=== PATIENT | male | born 1995 | race Caucasian/White ===

== ENCOUNTER → 2016-04-06 | Outpatient (CLI) | payer BC ==
[~2016-04-06] MED LIST: CHOL2000 PO; CLOT10TR2 MT; FERR1TAB13 PO; FERR1TAB23 PO; FOLI1TAB7 PO; FRRS300 PO; MESA1.2T PO; ONDA4TAB10 SL; PRD10 PO; PRED-301 PO; PRED10TA PO; PRED20TA PO; RANI300T2 PO; RMCI IV
[2016-04-06 17:37] LABS: HEMATOCRIT 24.3 % (42-52); IG% 0.3 %; LYMPH % 4.8 %; MEAN CELL VOLUME 79.4 fL (80-100); MEAN CORPUSCULAR HEMOGLOBIN 25.2 pg (25-34); MEAN CORPUSCULAR HGB CONC 31.7 g/dl (32-36); MEAN PLATELET VOLUME 9.8 fL (7.4-10.4); MONO % 1.5 %; NEUT % 93.4 %; PLATELET COUNT 418 K/uL (130-400); RED BLOOD COUNT 3.06 M/uL (4.7-6.1); WHITE BLOOD COUNT 10.35 K/uL (4.8-10.8)
[2016-04-06 17:53] LABS: ANISOCYTOSIS PRESENT; COMPLETE YES; HYPOCHROMIA PRESENT; OVALOCYTES 1+
[2016-04-06 18:09] LABS: ALT/SGPT 28 U/L (12-78); AST/SGOT 9 U/L (15-37); BLOOD UREA NITROGEN 12 mg/dl (7-18); BUN/CREATININE RATIO 11.3 (10-20); CALCIUM 8.2 mg/dl (8.5-10.1); CARBON DIOXIDE 27 mmol/L (21-32); CHLORIDE 99 mmol/L (98-107); GLUCOSE 119 mg/dl (70-99); POTASSIUM 3.7 mmol/L (3.5-5.1); SODIUM 136 mmol/L (136-145)
[2016-04-06 18:11] LABS: ALB/GLOB RATIO 0.9 (0.9-2); ALKALINE PHOSPHATASE 43 U/L (45-117); C-REACTIVE PROTEIN 2.43 mg/dl (0-0.29)
[2016-04-09 20:28] LABS: HEPATITIS BE ANTIBODY TC 556 Nonreactive; QUANTIF TB AG-NIL <0.00 IU/ML; QUANTIFERON NIL 0.05 IU/ML
== END | disposition home or self-care (01) ==
LOC: C.LAB1850 16:56
PROVIDERS: ATTEND Registered Nurse
DX: K51.00 Ulcerative (chronic) pancolitis without complications (principal)

== ENCOUNTER 2016-04-07 09:50 | Inpatient (IN) | payer BC, OTHER ==
[2016-04-07] VITALS (15 sets, daily range): BP systolic 93–120; BP diastolic 52–72; PULSE 64–105; TEMP 36.6–36.9; O2SAT 98–100; Ht 182.9 cm; Wt 75.1 kg
[~2016-04-07] VITALS: Ht 182.9 cm; Wt 75.1 kg
[~2016-04-07 09:50] MED LIST changes: -CHOL2000 PO; -CLOT10TR2 MT; -FERR1TAB23 PO; -FOLI1TAB7 PO; -FRRS300 PO; -MESA1.2T PO; -ONDA4TAB10 SL; -PRD10 PO; -PRED-301 PO; -PRED10TA PO; -PRED20TA PO; -RANI300T2 PO; -RMCI IV
[2016-04-07] MEDS ORDERED: ACETAMINOPHEN 325 MG TAB PO PRN (13:30)
[2016-04-07] MEDS ORDERED: SODIUM CHLORIDE 0.9% 1000ML 1,000 ML IV SCH (13:30)
[2016-04-07] MEDS ORDERED: ONDANSETRON INJ 2 MG/ML 2 ML VIAL IV PRN (13:30)
[2016-04-07] MEDS ORDERED: PRED10TA PO (13:34)
[2016-04-07] MEDS ORDERED: MESA1.2T PO (13:34)
[2016-04-07] MEDS ORDERED: CLOT10TR2 MT (13:34)
--- NOTE | 2016-04-07 14:40 | Gastrointestinal Consultation ---
Gastrointestinal Consultation Date of Consultation: Apr 07, 2016 Attending Physician: Dr. Payne Consulting Physician: Denia Ortega Reason for Consultation: Ulcerative pancolitis History of Present Illness Patient is a 20 year old male with a history of Ulcerative Pancolitis who was evaluated yesterday in the outpatient setting by Asya WARD. Within the past 2 months, the patient underwent a colonoscopy that indicated inflammation throughout the colon. The patient had discussed with Asya initiation of biologic therapy for his IBD in February 2016. Despite urging, he was hesitant to begin as he felt like he was initially doing better with Prednisone & Lialda. Unfortunately, several weeks later while on winter , he deconditioned. He was restarted on Prednisone and Remicade was again recommended. [place] to his hometown during the holiday break and became ill. He was admitted to the hospital there for IV rehydration & IV steroids. He reports that he was discharged, but ended up back in the hospital after several days due to worsening abdominal pain, nausea, & vomiting. His local GI had restarted his Prednisone taper at a high dose of 60 mg daily. While hospitalized at the end of February, his hemoglobin did decline from around 12 to 8.6. He has been taking oral iron BID. He has also continued Lialda 4.8 h daily in divided dosages. He reports >6 episodes of bloody diarrhea daily. He reports abdominal discomfort ranging from a 5-8/10. He reports a poor appetite. He reports fatigue & dyspnea on exertion. It was discussed at his appointment on 04/06 that he would officially begin Remicade. Insurance paperwork has been started and the patient was educated & immunized for influenza & Pneumovax. A CBC, CMP, CRP, & quant gold were ordered. The patient's outpatient labs returned today and his hemoglobin was noted to be 7.7. His CRP was noted to be 2.43. He was instructed to present to the hospital as the hospitalists were kind enough to accept him as a direct admission due to his steroid refractory ulcerative pancolitis & profound anemia. Past Medical/Surgical History Ulcerative pancolitis, steroid-refractory Blood loss anemia Past Medical History: Ulcerative colitis Past Surgical History: Denies surgery with exception of colonoscopy Social History Smoking Status: Never Smoker Allergies Coded Allergies: NO KNOWN DRUG ALLERGIES (Verified Allergy, Unknown, ., 01/08/16) Current Medications Home Meds and Scripts Medications Dose Route/Sig Max Daily Dose Days Date Category Mycelex (Clotrimazole) 10 Mg Tro 10 Mg MT 5XD 04/07/16 Reported Lialda (Mesalamine) 1.2 Gm Tab 1 Tab PO BID 90 04/07/16 Reported Prednisone 10 Mg Tab 50 Mg PO QD 04/07/16 Reported Kp Ferrous Sulfate (Ferrous Sulfate) 325 Mg Tab 1 Tab PO HS 30 01/08/16 Reported Review of Systems Constitutional: + fatigue, + weakness, No chills, No fever Eyes: No problem reported ENT: No problem reported Respiratory: + dyspnea on exertion, No cough, No shortness of breath Cardiac: No chest pain Abdomen: + GI bleeding, + diarrhea, + pain, No constipation, No nausea, No vomiting Musculoskeletal: No joint pain Psych: No problem reported Endo: + fatigue Skin: + problem reported (pale) Physical Exam Date Time Temp Pulse Resp B/P Pulse Ox O2 Delivery O2 Flow Rate FiO2 04/07/16 13:30 36.7 105 18 120/67 98 Room Air 04/07/16 12:42 36.7 105 18 120/67 98 Room Air General Appearance: WD/WN, no apparent distress Eyes: normal inspection, PERRL Respiratory/Chest: lungs clear, normal breath sounds Cardiovascular: regular rate, rhythm Abdomen: normal bowel sounds, soft, + tenderness (generalized) Extremities: non-tender Neurologic/Psych: alert, oriented x 3 Skin: + pallor Laboratory Results Last 24 Hours Test 04/07/16 13:25 Impression Patient is a 20 year old male with steroid refractory Ulcerative Colitis and profound anemia. Plan 1) Type & Cross. Plan to transfuse PRBCs. Continue to monitor CBC. 2) Patient was advised yesterday to increase his ferrous sulfate to 325 mg TID. 3) Plans were in place to begin Remicade as an outpatient. Received notice that this has been approved, so once quantiferon gold returns, patient could receive his first Remicade as an inpatient. 4) Continue Lialda 2.4 gm BID. Can utilize home meds with approval through pharmacy when available. 5) IV Solumedrol 40 mg q 12 hr. 6) Check C diff, stool culture, & gram stain stool. 7) IV fluids & supportive care per primary team. Thank you for allowing us to participate in the care of this patient. If you should have any further questions or concerns, do not hesitate to contact us. Agree with SAVANNA Priest as above Abd: Tay, NT, ND, +BS Continue current therapy Remicade treatment to start following return of Quant Gold
[2016-04-07] MEDS: METHYLPREDNISOLONE IV 40 MG in SYRINGE 0 ML IV SCH (14:54)
[2016-04-07] MEDS: NSS + 20MEQ KCL 1000ML 1,000 ML IV SCH ×2 (14:54→23:30)
--- NOTE | 2016-04-07 16:17 | History and Physical ---
History & Physical Date & Time of Service: Apr 07, 2016 at 16:04 Chief Complaint: Anemia Primary Care Physician: No Doctor, Assigned History of Present Illness Source: patient, family (parents), hospital records 20 yo male diagnosed earlier this year with ulcerative colitis when he presented with bloody diarrhea and weight loss. This was in December. He was treated with Prednisone and responded well. Prednisone stopped, started on Mesalamine. Immediately relapsed prior to and has not responded to Prednisone. On average he is having 10 BM a day, half of them are bloody. He has some abdominal pain when the BM are bloody. No vomiting, does have some decreased appetite. Has lost 20 pounds since the beginning of February. On outpatient labs his Hb was 7.7 yesterday. Gastroenterology recommended admission and he was accepted today. No other medical problems. Past Medical/Surgical History Childhood asthma - resolved Colonoscopy in December no other medical or surgical history Family History Grandmother - ulcerative colitis Second cousin - Crohn disease Social History Smoking Status: Never Smoker Alcohol Use: none Drug Use: none Marital Status: single Occupational Status: [employer] student ([employer]) Allergies Coded Allergies: NO KNOWN DRUG ALLERGIES (Verified Allergy, Unknown, ., 01/08/16) Home Medications Scheduled Clotrimazole (Mycelex), 10 MG MT 5XD Ferrous Sulfate ( Ferrous Sulfate), 1 TAB PO HS Mesalamine (Lialda), 1 TAB PO BID Prednisone Tab (Prednisone), 50 MG PO QD Review of Systems Constitutional: + fatigue, + weakness, + weight loss, No chills, No fever, No sweats Eyes: No diplopia, No discharge, No eye pain, No problem reported, No redness, No worsening of vision ENT: No dental problems, No hearing loss, No nasal symptoms, No problem reported, No sore throat, No tinnitus, No trouble swallowing, No unusual epistaxis Respiratory: No cough, No dyspnea at rest, No dyspnea on exertion, No hemoptysis, No problem reported, No shortness of breath, No sputum, No wheezing Cardiovascular: No PND, No chest pain, No claudication, No edema, No orthopnea , No palpitations, No problem reported Abdomen: + GI bleeding, + diarrhea, + pain, No constipation, No nausea, No vomiting Musculoskeletal: No calf pain, No joint pain, No muscle pain, No problem reported, No swelling Genitourinary - Male: No dysuria, No hematuria, No impotence, No lesions, No penile discharge, No problem reported, No urinary frequency, No urinary hesitancy, No urinary incontinence, No urinary retention, No urinary urgency Neurologic: No balance problems, No memory loss, No numbness/tingling, No paralysis, No problem reported, No vertigo, No weakness Psychiatric: No anhedonism, No anxiety, No depression symptoms, No insomnia, No problem reported, No substance abuse Endocrine: No excessive thirst, No excessive urination, No fatigue, No problem reported Hematologic / Lymphatic: No abnormal bleeding/bruising, No clotting problems, No night sweats, No problem reported, No swollen lymph nodes Integumentary: No bleeding, No color change, No itch, No new/changing skin lesions, No problem reported, No rash Allergic / Immunologic: No environmental allergies, No food allergies, No frequent infections, No hives, No pet sensitivities, No poor healing, No problem reported, No prolonged convalescence, No seasonal allergies Physical Exam Vital Signs Date Time Temp Pulse Resp B/P Pulse Ox O2 Delivery O2 Flow Rate FiO2 04/07/16 15:51 36.7 76 18 100/60 100 Room Air 04/07/16 13:30 36.7 105 18 120/67 98 Room Air 04/07/16 12:42 36.7 105 18 120/67 98 Room Air General Appearance: no apparent distress Head: normocephalic, atraumatic Eyes: normal inspection, EOMI, + abnormal sclerae exam (palor) ENT: normal ENT inspection, hearing grossly normal, pharynx normal Neck: supple, no adenopathy, no JVD, trachea midline Respiratory/Chest: chest non-tender, lungs clear, normal breath sounds, no respiratory distress, no accessory muscle use Cardiovascular: regular rate, rhythm, no edema, no gallop, no JVD, no murmur, normal peripheral pulses Abdomen/GI: normal bowel sounds, non tender, soft, no organomegaly Back: normal inspection, no CVA tenderness, no muscle spasm, normal range of motion Extremities/Musculoskelatal: normal inspection, no calf tenderness, normal capillary refill, no pedal edema, normal range of motion, pelvis stable 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, no motor/sensory deficits, alert, normal mood/affect, normal reflexes, oriented x 3 Skin: warm/dry, no rash, + pallor Lymphatic: no adenopathy Diagnostics Laboratory Results Results Past 24 Hours Test 04/07/16 14:15 Range/Units Hemoglobin 7.2 14.0-18.0 g/dL Hematocrit 23.0 42-52 % Microbiology Results 04/07/16 C.difficile Toxin B Gene (PCR), Ordered Pending Impression Assessment and Plan 20 yo male with severe ulcerative pancolitis - Ulcerative pancolitis with uncontrolled symptoms: Solumedrol 40 q12, GI consulted plan for Remicade - Blood loss anemia: over past several weeks/months will transfuse 2 units PRBC for Hb of 7.2 today - DVT prophylaxis: ambulation Level of Care Med/Surg Advanced Directives Existing Advance Directive: No Existing Living Will: No Existing Power of Upholstered Goods Crafter: No Resuscitation Status FULL RESUSCITATION VTE Prophylaxis VTE Risk Assessment Done? Y/N: Yes Risk Level: Low Given or contraindicated: Treatment not indicated Additional Copies To Ernie, Pete Palacio D.O.
[2016-04-07] MEDS: FERROUS SULFATE 325 MG TAB PO SCH (17:24)
[2016-04-08] VITALS (12 sets, daily range): BP systolic 99–115; BP diastolic 58–84; PULSE 60–80; TEMP 36.3–36.8; O2SAT 97–100
[2016-04-08] MEDS: METHYLPREDNISOLONE IV 40 MG in SYRINGE 0 ML IV SCH ×2 (02:08→14:18)
[2016-04-08 06:18] LABS: BASO % 0.1 %; BASO ABS # 0.01 K/uL (0-0.2); HEMATOCRIT 26.8 % (42-52); IG% 0.4 %; LYMPH % 4.2 %; LYMPH ABS # 0.54 K/uL (1.2-3.4); MEAN CELL VOLUME 78.1 fL (80-100); MEAN CORPUSCULAR HEMOGLOBIN 25.4 pg (25-34); MEAN CORPUSCULAR HGB CONC 32.5 g/dl (32-36); MEAN PLATELET VOLUME 9.6 fL (7.4-10.4); MONO % 3.7 %; NEUT % 91.6 %; PLATELET COUNT 331 K/uL (130-400); RED BLOOD COUNT 3.43 M/uL (4.7-6.1); WHITE BLOOD COUNT 12.76 K/uL (4.8-10.8)
[2016-04-08 06:44] LABS: COMPLETE YES
[2016-04-08 06:50] LABS: BLOOD UREA NITROGEN 8 mg/dl (7-18); BUN/CREATININE RATIO 12.3 (10-20); CALCIUM 8.4 mg/dl (8.5-10.1); CARBON DIOXIDE 26 mmol/L (21-32); CHLORIDE 104 mmol/L (98-107); CREATININE 0.66 mg/dl (0.60-1.40); GLUCOSE 101 mg/dl (70-99); MAGNESIUM 2.3 mg/dl (1.8-2.4); SODIUM 139 mmol/L (136-145)
[2016-04-08] MEDS: FERROUS SULFATE 325 MG TAB PO SCH ×3 (08:16→16:31)
--- NOTE | 2016-04-08 12:10 | Gastroenterology Progress Note ---
Progress Note Date of Service: Apr 08, 2016 Subjective Pt evaluation today including: conversation w/ patient, physical exam, lab review, review of studies Patient is a 20 yo male who is hospitalized for steroid refractory ulcerative pancolitis who is hospitalized with profound anemia. His H/H improved to 8.7/ 26.8 after 2 units PRBCs. The patient reports some left sided abdominal pain, but overall feels that it's improving. He reports 2 episodes of loose stools in the past 12 hours which is a significant improvement. He reports improvement of bleeding. He offers no further complaints at present. Review of Systems Constitutional: No problem reported Respiratory: No cough, No shortness of breath Cardiac: No chest pain Abdomen: + GI bleeding, + diarrhea, + pain, No constipation, No nausea, No vomiting Musculoskeletal: No joint pain Skin: No problem reported Medications Current Inpatient Medications Medications (Trade) Dose Ordered Sig/Josias Route Start Time Stop Time Status Last Admin Dose Admin Acetaminophen (Tylenol Tab) 650 mg Q4H PRN PO 04/07/16 13:30 05/07/16 13:29 Ondansetron HCl 4 mg 4 mg Q6H PRN IV 04/07/16 13:30 05/07/16 13:29 Methylprednisolone Sodium Succinate/ Syringe (Solu-Medrol IV/ Syringe) 0.64 ml @ 1.5 mls/min Q12@0200,1400 IV 04/07/16 14:00 05/07/16 20:59 04/08/16 02:08 1.5 MLS/MIN Ferrous Sulfate (Feosol Tab) 325 mg TIDM PO 04/07/16 17:00 05/07/16 16:59 04/08/16 08:16 325 MG Mesalamine (Delzicol Delayed Rel Cap) 1,200 mg BID PO 04/08/16 20:00 05/08/16 19:59 Objective Vital Signs Date Time Temp Pulse Resp B/P Pulse Ox O2 Delivery O2 Flow Rate FiO2 04/08/16 08:30 100 Room Air 04/08/16 08:18 36.6 60 15 111/70 100 Room Air 04/08/16 02:30 36.6 60 16 107/58 99 Room Air 04/08/16 00:45 Room Air 04/07/16 22:30 36.6 66 18 114/66 04/07/16 21:30 36.7 64 18 103/62 98 04/07/16 21:00 36.7 66 18 93/52 99 04/07/16 20:30 36.8 67 18 102/62 99 04/07/16 20:15 36.8 71 18 107/61 99 04/07/16 19:55 36.7 78 18 102/61 99 04/07/16 18:45 36.7 69 18 107/66 99 04/07/16 17:45 36.6 71 18 112/66 100 04/07/16 17:15 36.8 81 18 109/72 99 04/07/16 17:00 36.9 72 18 107/61 100 04/07/16 16:41 36.8 94 18 99/62 98 04/07/16 16:00 100 Room Air 04/07/16 15:51 36.7 76 18 100/60 100 Room Air 04/07/16 13:30 36.7 105 18 120/67 98 Room Air 04/07/16 12:42 36.7 105 18 120/67 98 Room Air Physical Exam General Appearance: WD/WN, no apparent distress Eyes: normal inspection, PERRL ENT: hearing grossly normal Respiratory/Chest: lungs clear, normal breath sounds Cardiovascular: regular rate, rhythm Abdomen: normal bowel sounds, soft, + tenderness Extremities: non-tender Neurologic/Psych: alert, oriented x 3 Skin: normal color Laboratory Results Last 24 Hours Test 04/07/16 14:15 04/08/16 05:51 Hemoglobin 7.2 g/dL 8.7 g/dL Hematocrit 23.0 % 26.8 % White Blood Count 12.76 K/uL Red Blood Count 3.43 M/uL Mean Corpuscular Volume 78.1 fL Mean Corpuscular Hemoglobin 25.4 pg Mean Corpuscular Hemoglobin Concent 32.5 g/dl Platelet Count 331 K/uL Mean Platelet Volume 9.6 fL Neutrophils (%) (Auto) 91.6 % Lymphocytes (%) (Auto) 4.2 % Monocytes (%) (Auto) 3.7 % Eosinophils (%) (Auto) 0.0 % Basophils (%) (Auto) 0.1 % Neutrophils # (Auto) 11.69 K/uL Lymphocytes # (Auto) 0.54 K/uL Monocytes # (Auto) 0.47 K/uL Eosinophils # (Auto) 0.00 K/uL Basophils # (Auto) 0.01 K/uL RDW Standard Deviation 44.0 fL RDW Coefficient of Variation 15.5 % Immature Granulocyte % (Auto) 0.4 % Immature Granulocyte # (Auto) 0.05 K/uL Red Blood Cell Morphology Unremarkable Sodium Level 139 mmol/L Potassium Level 4.0 mmol/L Chloride Level 104 mmol/L Carbon Dioxide Level 26 mmol/L Anion Gap 9.0 mmol/L Blood Urea Nitrogen 8 mg/dl Creatinine 0.66 mg/dl Est Creatinine Clear Calc Drug Dose 185.0 ml/min Estimated GFR () > 150.0 Estimated GFR (Non- 137.2 BUN/Creatinine Ratio 12.3 Random Glucose 101 mg/dl Calcium Level 8.4 mg/dl Magnesium Level 2.3 mg/dl Assessment and Plan Patient is a 20 yo male with steroid refractory pancolitis & profound anemia. 1) Continue Lialda home medication at 2.4 gm BID. 2) Continue IV Solumedrol 40 mg q 12 hr. At time of d/c would recommend he leave on po steroid taper x 8 weeks beginning at 40 mg daily and decreasing by 5 mg weekly. 3) Requested results of CXR obtained at [facility] last week. If no evidence of TB, would plan to initiate first Remicade infusion today. Dosing would be 5 mg/kg IV. Rate as follows: 10 ml/hr x 15 minutes then increasing to 20 ml/hr x 15 minutes, then 40 ml/hr x 15 minutes, then 80 ml/hr x 15 minutes, then 150 ml/hr x 30 minutes or until infusion is finished. Could increase rate up to 250 ml/hr if tolerated. For a mild/moderate reaction, would recommend slowing/suspending infusion and administering a one-time dose of IV Benadryl 50 mg & IV Solumedrol 40 mg. After initial dosage, patient will require another infusion in 2 weeks, 4 weeks after the 2nd infusion, and every 8 weeks thereafter. Must weight patient prior to infusion. 4) Continue Ferrous sulfate 325 mg TID. 5) Supportive care per primary team. Thank you for allowing us to participate in the care of this patient. If you should have any further questions or concerns, do not hesitate to contact us. Agree with SAVANNA Priest as above Patient was discharged prior to my evaluation.
[2016-04-08] MEDS ORDERED: METHYLPREDNISOLONE 40 MG in SYRINGE 0 ML IV PRN (15:45)
[2016-04-08] MEDS ORDERED: SOD CHL IV SCH ×2 (16:00)
[2016-04-08] MEDS ORDERED: 1.2 MICRON FILTER 1 EA IV SCH (16:00)
[2016-04-08] MEDS ORDERED: INFLIXIMAB IV SCH ×2 (16:00)
[2016-04-08] MEDS ORDERED: POLYOLEFIN IV SCH ×2 (16:00)
[2016-04-08] MEDS ORDERED: DiphenhydrAMINE HCL 50 MG/ML VIAL IV PRN (16:00)
[2016-04-08] MEDS ORDERED: PRIMARY PLUMSET 1 EA IV SCH (16:00)
--- NOTE | 2016-04-08 16:09 | Progress Note ---
Subjective Date of Service: Apr 08, 2016. Subjective Pt evaluation today including: conversation w/ patient, conversation w/ family , physical exam, lab review, conversation w/ rewards consultant, review of inpatient medication list Pain: no pain PO Intake: adequate Voiding: no voiding problems less BM this AM, only two and no blood reported color is better after transfusion, reports he has more energy d/w Dr. Klein, going to start Remicade and watch for response Review of Systems Constitutional: + fatigue, + weakness Abdomen: + diarrhea All Other Systems: Reviewed and Negative Medications Current Inpatient Medications Medications (Trade) Dose Ordered Sig/Josias Route Start Time Stop Time Status Last Admin Dose Admin Acetaminophen (Tylenol Tab) 650 mg Q4H PRN PO 04/07/16 13:30 05/07/16 13:29 Ondansetron HCl 4 mg 4 mg Q6H PRN IV 04/07/16 13:30 05/07/16 13:29 Methylprednisolone Sodium Succinate/ Syringe (Solu-Medrol IV/ Syringe) 0.64 ml @ 1.5 mls/min Q12@0200,1400 IV 04/07/16 14:00 05/07/16 20:59 04/08/16 14:18 1.5 MLS/MIN Ferrous Sulfate (Feosol Tab) 325 mg TIDM PO 04/07/16 17:00 05/07/16 16:59 04/08/16 14:18 325 MG Mesalamine 1200 mg 1,200 mg BID PO 04/08/16 20:00 05/08/16 19:59 Infliximab/Sodium Chloride (Remicade Inj/ Sodium Chloride 0.9% Polyolefin Containter) 250 ml @ 125 mls/hr TODAY@1600 IV 04/08/16 16:00 04/08/16 17:59 Diphenhydramine HCl 50 mg 50 mg UD PRN IV 04/08/16 16:00 04/08/16 23:59 Methylprednisolone Sodium Succinate/ Syringe (Solu-Medrol IV/ Syringe) 0.64 ml @ 1.5 mls/min TODAY@1600 PRN IV 04/08/16 15:45 04/08/16 23:59 Objective Vital Signs Date Time Temp Pulse Resp B/P Pulse Ox O2 Delivery O2 Flow Rate FiO2 04/08/16 14:51 36.7 74 16 107/64 99 Room Air 04/08/16 08:30 100 Room Air 04/08/16 08:18 36.6 60 15 111/70 100 Room Air 04/08/16 02:30 36.6 60 16 107/58 99 Room Air 04/08/16 00:45 Room Air 04/07/16 22:30 36.6 66 18 114/66 04/07/16 21:30 36.7 64 18 103/62 98 04/07/16 21:00 36.7 66 18 93/52 99 04/07/16 20:30 36.8 67 18 102/62 99 04/07/16 20:15 36.8 71 18 107/61 99 04/07/16 19:55 36.7 78 18 102/61 99 04/07/16 18:45 36.7 69 18 107/66 99 04/07/16 17:45 36.6 71 18 112/66 100 04/07/16 17:15 36.8 81 18 109/72 99 04/07/16 17:00 36.9 72 18 107/61 100 04/07/16 16:41 36.8 94 18 99/62 98 Physical Exam General Appearance: no apparent distress, + thin Eyes: normal inspection, EOMI, sclerae normal ENT: normal ENT inspection, hearing grossly normal, pharynx normal Neck: supple, no adenopathy, no JVD, trachea midline Respiratory/Chest: chest non-tender, lungs clear, normal breath sounds, no respiratory distress, no accessory muscle use Cardiovascular: regular rate, rhythm, no edema, no gallop, no JVD, no murmur Abdomen: normal bowel sounds, non tender, soft, no organomegaly Extremities: normal range of motion, non-tender, normal inspection, no pedal edema, no calf tenderness 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, no motor/sensory deficits, alert, normal mood/affect, oriented x 3 Skin: normal color, warm/dry, no rash Lymphatic: no adenopathy Laboratory Results Last 24 Hours Test 04/08/16 05:51 White Blood Count 12.76 K/uL Red Blood Count 3.43 M/uL Hemoglobin 8.7 g/dL Hematocrit 26.8 % Mean Corpuscular Volume 78.1 fL Mean Corpuscular Hemoglobin 25.4 pg Mean Corpuscular Hemoglobin Concent 32.5 g/dl Platelet Count 331 K/uL Mean Platelet Volume 9.6 fL Neutrophils (%) (Auto) 91.6 % Lymphocytes (%) (Auto) 4.2 % Monocytes (%) (Auto) 3.7 % Eosinophils (%) (Auto) 0.0 % Basophils (%) (Auto) 0.1 % Neutrophils # (Auto) 11.69 K/uL Lymphocytes # (Auto) 0.54 K/uL Monocytes # (Auto) 0.47 K/uL Eosinophils # (Auto) 0.00 K/uL Basophils # (Auto) 0.01 K/uL RDW Standard Deviation 44.0 fL RDW Coefficient of Variation 15.5 % Immature Granulocyte % (Auto) 0.4 % Immature Granulocyte # (Auto) 0.05 K/uL Red Blood Cell Morphology Unremarkable Sodium Level 139 mmol/L Potassium Level 4.0 mmol/L Chloride Level 104 mmol/L Carbon Dioxide Level 26 mmol/L Anion Gap 9.0 mmol/L Blood Urea Nitrogen 8 mg/dl Creatinine 0.66 mg/dl Est Creatinine Clear Calc Drug Dose 185.0 ml/min Estimated GFR () > 150.0 Estimated GFR (Non- 137.2 BUN/Creatinine Ratio 12.3 Random Glucose 101 mg/dl Calcium Level 8.4 mg/dl Magnesium Level 2.3 mg/dl Assessment and Plan 20 yo male with severe ulcerative pancolitis - Ulcerative pancolitis with uncontrolled symptoms: Solumedrol 40 q12, mesalamine 1200mg BID plan for Remicade, will be infused today - Blood loss anemia: over past several weeks/months transfused 2 units PRBC for Hb of 7.2 on 04/07 Hb up to 8.7 today, more energy, no further pallor - DVT prophylaxis: ambulation Plan: continue current regimen, look for further improvement in stool frequency and bleeding
[2016-04-08] MEDS: MESALAMINE 400 MG CAPDR PO SCH (20:56)
[2016-04-09] MEDS: METHYLPREDNISOLONE IV 40 MG in SYRINGE 0 ML IV SCH (01:52)
--- NOTE | 2016-04-09 07:49 | Gastroenterology Progress Note ---
Progress Note Date of Service: Apr 09, 2016 Subjective Pt evaluation today including: conversation w/ patient, physical exam The patient is followed by Dr. Klein and ruchi Peterson for ulcerative colitis. He was admitted to the hospital for hematochezia and severe iron deficiency anemia. The patient reports having no bloody bowel movements in the last 24 hours since starting Remicade yesterday and steroids on upon admission. He reports tolerating by mouth without difficulty. Review of Systems Constitutional: No fever, No weight loss Respiratory: No cough Cardiac: No PND, No chest pain, No palpitations Medications Current Inpatient Medications Medications (Trade) Dose Ordered Sig/Josias Route Start Time Stop Time Status Last Admin Dose Admin Acetaminophen (Tylenol Tab) 650 mg Q4H PRN PO 04/07/16 13:30 05/07/16 13:29 Ondansetron HCl 4 mg 4 mg Q6H PRN IV 04/07/16 13:30 05/07/16 13:29 Methylprednisolone Sodium Succinate/ Syringe (Solu-Medrol IV/ Syringe) 0.64 ml @ 1.5 mls/min Q12@0200,1400 IV 04/07/16 14:00 05/07/16 20:59 04/09/16 01:52 1.5 MLS/MIN Ferrous Sulfate (Feosol Tab) 325 mg TIDM PO 04/07/16 17:00 05/07/16 16:59 04/08/16 16:31 325 MG Mesalamine (Delzicol Delayed Rel Cap) 1,200 mg BID PO 04/08/16 20:00 05/08/16 19:59 04/08/16 20:56 1,200 MG Objective Vital Signs Date Time Temp Pulse Resp B/P Pulse Ox O2 Delivery O2 Flow Rate FiO2 04/08/16 23:59 Room Air 04/08/16 23:42 36.4 80 18 99/62 98 Room Air 04/08/16 18:30 36.8 66 18 110/68 100 Room Air 04/08/16 17:30 36.7 66 16 115/84 100 Room Air 04/08/16 17:15 36.3 73 19 113/81 99 Room Air 04/08/16 17:00 36.3 66 66 103/62 97 Room Air 04/08/16 16:45 36.4 65 18 109/63 100 Room Air 04/08/16 16:30 36.6 62 18 110/63 100 Room Air 04/08/16 16:25 99 Room Air 04/08/16 14:51 36.7 74 16 107/64 99 Room Air 04/08/16 08:30 100 Room Air 04/08/16 08:18 36.6 60 15 111/70 100 Room Air Physical Exam General Appearance: no apparent distress Neck: no JVD Respiratory/Chest: lungs clear Cardiovascular: regular rate, rhythm, no gallop, no JVD, no murmur Abdomen: soft Extremities: non-tender Neurologic/Psych: oriented x 3 Skin: no jaundice Assessment and Plan Patient with a history of ulcerative colitis recent was started on Remicade. He appears to be improved today and does wish to go home if possible. Please see her notes for recommendations steroids and medications requested by Dr. Klein and ms. Ortiz 1) Continue Lialda home medication at 2.4 gm BID. 2) At time of d/c would recommend he leave on po steroid taper x 8 weeks beginning at 40 mg daily and decreasing by 5 mg weekly. 3) Remicade dosing per Ms. Peterson and Dr. Klein. 4) Continue Ferrous sulfate 325 mg TID.
[2016-04-09] MEDS: MESALAMINE 400 MG CAPDR PO SCH (08:06)
[2016-04-09] MEDS: FERROUS SULFATE 325 MG TAB PO SCH ×2 (08:07→11:08)
[2016-04-09 08:27] VITALS: BP 110/57; PULSE 69; TEMP 36.5; O2SAT 99
[2016-04-09 08:30] VITALS: O2SAT 100
[2016-04-09] MEDS ORDERED: PRD10 PO (09:42)
[2016-04-09] MEDS ORDERED: PRED20TA PO (09:42)
[2016-04-09] MEDS ORDERED: FRRS300 PO (09:42)
[2016-04-09] MEDS ORDERED: MESA1.2T PO (09:42)
--- NOTE | 2016-04-09 09:47 | Discharge Instructions ---
Discharge Instructions Admission Reason for Admission: Anemia Discharge Discharge Diagnosis / Problem: Severe ulcerative colitis, blood loss anemia, iron deficiency Discharge Goals Goal(s): Improve disease control, Therapeutic intervention (second remicade infustion in 2 weeks) Activity Recommendations Activity Limitations: resume your previous activity Lifting Limitations: none Exercise/Sports Limitations: as tolerated May Resume Sexual Activity: when tolerated Shower/Bathe: no limitations Driving or Machine Use: no limitations . Instructions / Follow-Up Instructions / Follow-Up Medications: - PREDNISONE: starting tomorrow, take 40mg daily x 1 week then decrease to 35mg daily for one week, decrease by 5mg every week until prescription complete, should take you 8 weeks. I have provided you with a script for 20mg tablets and 10mg tablets, the 10mg tablets can be cut in half for 5mg doses. - MESALAMINE: dose increased to 2.4 gm (2 tablets) twice a day - FERROUS SULFATE: increase frequency to three times a day FOLLOW UP - please call the office of Dr. Klein / Asya Shell for further instructions and to set up second Remicade infusion - please notify them if your symptoms worsen again Current Hospital Diet Patient's current hospital diet: Low Fiber Diet Discharge Diet Recommended Diet: Regular Diet Procedures Procedures Performed: Remicade infustion Packed red blood cell infusion, 2 units given Pending Studies Studies pending at discharge: no Laboratory Results Last Resulted CBC 04/08/16 05:51 Red Blood Count 3.43, Mean Corpuscular Volume 78.1, Mean Corpuscular Hemoglobin 25.4, Mean Corpuscular Hemoglobin Concent 32.5, Mean Platelet Volume 9.6, Neutrophils (%) (Auto) 91.6, Lymphocytes (%) (Auto) 4.2, Monocytes (%) (Auto) 3.7, Eosinophils (%) (Auto) 0.0, Basophils (%) (Auto) 0.1, Neutrophils # (Auto) 11.69, Lymphocytes # (Auto) 0.54, Monocytes # (Auto) 0.47, Eosinophils # (Auto) 0.00, Basophils # (Auto) 0.01 Last Resulted BMP 04/08/16 05:51 Medical Emergencies . Who to Call and When: Medical Emergencies: If at any time you feel your situation is an emergency, please call 911 immediately. . Non-Emergent Contact Non-Emergency issues call your: Legal Secretary Receptionist Call Non-Emergent contact if: you have a fever, your pain is worsening, your pain is concerning you, you have any medication questions . Past History Medical & Surgical History: (1) Ulcerative pancolitis (2) Blood loss anemia . "Provider Documentation" section prepared by Narinder Payne. VTE Core Measure Inpt VTE Proph given/why not?: Treatment not indicated [place] Drug Monitoring Program Search Results: no issues identified
--- NOTE | 2016-04-09 10:54 | Discharge Summary ---
Discharge Summary Admission Date: Apr 07, 2016 at 12:27 Discharge Date: Apr 09, 2016 Discharge Disposition: Home Principal Diagnosis: Severe ulcerative pancolitis Problems/Secondary Diagnoses: Blood loss anemia Fatigue and weakness Procedures: Remicade infusion 04/08 PRBC transfusion 04/07 Consultations: Gastroenterology Medication Reconciliation New Medications: Prednisone (Prednisone) 10 Mg Tab 1 TAB PO UD, #45 TABS 0 Refills combine with 20mg tabs, start at 40mg daily x 1 week, decrease by 5mg every week until complete Prednisone (Prednisone) 20 Mg Tab 1 TAB PO UD, #42 TAB combine with 10mg tabs, start at 40mg daily x 1 week, decrease by 5mg every week until complete Ferrous Sulfate (Ferrous Sulfate) 325 Mg Tab 325 MG PO TIDM, #90 TAB 3 Refills Mesalamine (Lialda) 1.2 Gm Tab 2.4 GM PO BID, #120 TAB 3 Refills Discontinued Medications: Clotrimazole (Mycelex) 10 Mg Tro 10 MG MT 5XD, RUTHANN Ferrous Sulfate (Kp Ferrous Sulfate) 325 Mg Tab 1 TAB PO HS for 30 Days, TAB 3 Refills Mesalamine (Lialda) 1.2 Gm Tab 1 TAB PO BID for 90 Days, #180 TAB 3 Refills Prednisone Tab (Prednisone) 10 Mg Tab 50 MG PO QD, TAB Discharge Exam Patient feeling much better today, reports that his last BM was 24 hours ago, two of them, no blood, no pain. He says that the last time he went 24 hours between bowel movements was beginning of February. Eating well. No abdominal pain, chest pain, shortness of breath. More energy today. No vomiting. Tolerated Remicade well yesterday. Plan to have a second infusion in two weeks. Review of Systems: Constitutional: No chills, No fatigue, No fever, No problem reported, No sweats, No weakness, No weight loss Eyes: No diplopia, No discharge, No eye pain, No problem reported, No redness, No worsening of vision ENT: No dental problems, No hearing loss, No nasal symptoms, No problem reported, No sore throat, No tinnitus, No trouble swallowing, No unusual epistaxis Respiratory: No cough, No dyspnea at rest, No dyspnea on exertion, No hemoptysis, No problem reported, No shortness of breath, No sputum, No wheezing Cardiovascular: No PND, No chest pain, No claudication, No edema, No orthopnea, No palpitations, No problem reported Abdomen: No GI bleeding, No constipation, No diarrhea, No nausea, No pain, No problem reported, No vomiting Musculoskeletal: No calf pain, No joint pain, No muscle pain, No problem reported, No swelling Genitourinary - Male: No dysuria, No hematuria, No urinary frequency, No urinary urgency Neurologic: No balance problems, No memory loss, No numbness/tingling, No paralysis, No problem reported, No vertigo, No weakness Psychiatric: No anhedonism, No anxiety, No depression symptoms, No insomnia , No problem reported, No substance abuse Endocrine: No excessive thirst, No excessive urination, No fatigue, No problem reported Hematologic / Lymphatic: No abnormal bleeding/bruising, No clotting problems , No night sweats, No problem reported, No swollen lymph nodes Integumentary: No bleeding, No color change, No itch, No new/changing skin lesions, No problem reported, No rash Physical Exam: General Appearance: WD/WN, no apparent distress Eyes: normal inspection, EOMI, sclerae normal ENT: normal ENT inspection, hearing grossly normal, pharynx normal Neck: supple, no adenopathy, no JVD, trachea midline Respiratory/Chest: chest non-tender, lungs clear, normal breath sounds, no respiratory distress, no accessory muscle use Cardiovascular: regular rate, rhythm, no edema, no gallop, no JVD, no murmur , normal peripheral pulses Abdomen / GI: normal bowel sounds, non tender, soft, no organomegaly Extremities: normal inspection, no calf tenderness, normal capillary refill , no pedal edema, normal range of motion, pelvis stable Neurologic/Psychiatric: swimmer II-XII nml as tested, no motor/sensory deficits , alert, normal mood/affect, normal reflexes, oriented x 3 Skin: normal color, warm/dry, no rash Lymphatic: no adenopathy Hospital Course 20 yo male with severe ulcerative pancolitis, responded very well to IV Solumedrol, Remicade and mesalamine. Received 2 units of PRBC for Hb of 7.2, jeremy to 8.7 appropriately. No BM for 24 hours, no abdominal pain, eating well, patient feels ready to go home. - Ulcerative pancolitis with uncontrolled symptoms: Solumedrol 40 q12, mesalamine 2400mg BID received Remicade 04/08, tolerated well, no adverse reactions discharge plan per GI, they will see him in the office and plan for a second Remicade transfusion in two weeks Prednisone 40mg daily x 1 week then decrease to 35mg daily x 1 week, decrease by 5mg every week until complete, 8 weeks total continue increased dose of Mesalamine 2400mg - Blood loss anemia: over past several weeks/months transfused 2 units PRBC for Hb of 7.2 on 04/07 Hb up to 8.7 yesterday, more energy, no further pallor - Iron deficiency: due to chronic blood loss, continue increased dose of Ferrous Sulfate at 325mg TID - DVT prophylaxis: ambulation Plan: d/c home with GI follow up Total Time Spent: Greater than 30 minutes This includes examination of the patient, discharge planning, medication reconciliation, and communication with other providers. Discharge Instructions Please refer to the electronic Patient Visit Report (Discharge Instructions) for additional information. Follow-Up Dr. Klein / Asya Shell in 1-2 weeks, repeat Remicade in 2 weeks Additional Copies To Pete Klein D.O.
[2016-04-09 11:00] VITALS: BP 110/57; PULSE 69; TEMP 36.5; O2SAT 100
[2016-04-09 11:10] LABS: HEMATOCRIT 29.1 % (42-52)
[2016-04-09] MEDS ORDERED: MESALAMINE 1.2 GM TAB PO SCH (20:00)
[2016-09-20] MEDS ORDERED: FERR1TAB23 PO (11:29)
== END 2016-04-09 11:30 | disposition home or self-care (01) | DRG 386 ==
LOC: C.4E 12:27
PROVIDERS: ADMIT Internal Medicine; ATTEND Internal Medicine
DX: K51.90 Ulcerative colitis, unspecified, without complications (principal); D62 Acute posthemorrhagic anemia; Z83.79 Family history of other diseases of the digestive system

== ENCOUNTER → 2016-04-25 | Outpatient (CLI) | payer BC, OTHER ==
[~2016-04-25] MED LIST changes: +CHOL2000 PO; -FERR1TAB13 PO; +FERR1TAB23 PO; +FOLI1TAB7 PO; +FRRS300 PO; +MESA1.2T PO; +ONDA4TAB10 SL; +PRD10 PO; +PRED-301 PO; +PRED20TA PO; +RANI300T2 PO; +RMCI IV
[2016-04-25 15:47] LABS: HEMATOCRIT 37.8 % (42-52); IG% 0.6 %; LYMPH % 4.1 %; LYMPH ABS # 0.49 K/uL (1.2-3.4); MEAN CELL VOLUME 90.2 fL (80-100); MEAN CORPUSCULAR HEMOGLOBIN 27.2 pg (25-34); MEAN CORPUSCULAR HGB CONC 30.2 g/dl (32-36); MEAN PLATELET VOLUME 11.5 fL (7.4-10.4); MONO % 2.4 %; NEUT % 92.9 %; PLATELET COUNT 274 K/uL (130-400); RED BLOOD COUNT 4.19 M/uL (4.7-6.1); WHITE BLOOD COUNT 11.87 K/uL (4.8-10.8)
[2016-04-25 16:11] LABS: ANISOCYTOSIS PRESENT; COMPLETE YES; OVALOCYTES 1+
[2016-04-25 17:38] LABS: ALT/SGPT 43 U/L (12-78); BLOOD UREA NITROGEN 9 mg/dl (7-18); BUN/CREATININE RATIO 9.4 (10-20); C-REACTIVE PROTEIN < 0.29 mg/dl (0-0.29); CALCIUM 8.5 mg/dl (8.5-10.1); CARBON DIOXIDE 28 mmol/L (21-32); CHLORIDE 105 mmol/L (98-107); CREATININE 0.99 mg/dl (0.60-1.40); GLUCOSE 130 mg/dl (70-99); POTASSIUM 4.2 mmol/L (3.5-5.1); SODIUM 141 mmol/L (136-145)
[2016-04-25 17:41] LABS: ALB/GLOB RATIO 1.1 (0.9-2); ALKALINE PHOSPHATASE 54 U/L (45-117); AST/SGOT 12 U/L (15-37)
[2016-04-27 13:34] LABS: QUANTIFERON NIL 0.03 IU/ML
== END | disposition home or self-care (01) ==
LOC: C.LAB1850 14:33
PROVIDERS: ATTEND Registered Nurse
DX: K51.00 Ulcerative (chronic) pancolitis without complications (principal); D50.0 Iron deficiency anemia secondary to blood loss (chronic)

== ENCOUNTER → 2016-06-06 | Outpatient (CLI) | payer BC, OTHER | END | disposition home or self-care (01) | LOC: C.LAB1850 16:20 | PROVIDERS: ATTEND Registered Nurse | DX: R10.9 Unspecified abdominal pain (principal); R19.7 Diarrhea, unspecified ==

== ENCOUNTER 2016-09-03 10:54 | Emergency (ER) | payer BC, OTHER ==
[~2016-09-03] VITALS: Ht 180.3 cm; Wt 85.0 kg
[~2016-09-03 10:54] MED LIST changes: -CHOL2000 PO; -FERR1TAB23 PO; -FOLI1TAB7 PO; -ONDA4TAB10 SL; -PRED-301 PO; -RANI300T2 PO; -RMCI IV
[2016-09-03 10:59] VITALS: TEMP 36.5; Ht 180.3 cm; Wt 85.0 kg
[2016-09-03] MEDS ORDERED: RMCI IV (11:06)
[2016-09-03] MEDS ORDERED: ONDANSETRON INJ 2 MG/ML 2 ML VIAL IV PRN (11:45)
[2016-09-03] MEDS ORDERED: SODIUM CHLORIDE 0.9% 1000ML 2,000 ML IV ONE (11:45)
--- NOTE | 2016-09-03 11:53 | EMERGENCY ROOM VISIT NOTE ---
History Report prepared by Amy: Sonia Amor Under the Supervision of: Dr. Kb Chance M.D. First contact with patient: 11:42 Chief Complaint: GI ASSESSMENT Stated Complaint: ULCERATIVE COLITIS, VOMITING, NAUSEA Nursing Triage Summary: for the past month bloody diarrhea and abd pain, hx ulcerative colitis, pt started vomiting today, had one episode denies any blood noted History of Present Illness The patient is a 20 year old male who presents to the Emergency Room with complaints of persistent vomiting that began this morning. The patient states that he has a history of ulcerative colitis and began feeling nauseous this morning and vomiting. He is unsure about a fever, but denies any chills. The patient states that he was able to keep water down today. He denies any abdominal pain. The patient additionally notes a history of anemia. The patient states that he gets Remicade injections for his ulcerative colitis, noting that his last injection was two months ago. He states that he follows with gastroenterology. The patient states that he does not take Zofran or Phenergan at home for his nausea. He reports normal urination. The patient denies any leg pain. He denies any history of c-diff. Source of History: patient Onset: this morning Position: other (global) Quality: other (vomiting) Timing: other (persistent) Associated Symptoms: + nausea, No chills, No abdominal pain Review of Systems All systems have been listed, reviewed, and are negative other than those previously mentioned. Please see Additional Medical History Sheet. Past Medical & Surgical Medical Problems: (1) Asthma (2) Blood loss anemia (3) Ulcerative pancolitis Family History Cancer Diabetes mellitus Heart disease Hypertension Kidney disease Kidney stones Social History Smoking Status: Never Smoker Smokeless Tobacco Use: No Alcohol Use: occasionally Marital Status: single Occupation Status: employed Current/Historical Medications Scheduled Ferrous Sulfate (Ferrous Sulfate), 325 MG PO TIDM Infliximab (Remicade), 1 DOSE IV Q6WK Ondasetron Odt (Zofran Odt), 4 MG SL Q4 Allergies Coded Allergies: NO KNOWN DRUG ALLERGIES (Verified Allergy, Unknown, ., 09/03/16) Physical Exam Vital Signs Date Time Temp Pulse Resp B/P (MAP) Pulse Ox O2 Delivery O2 Flow Rate FiO2 09/03/16 14:07 68 19 98 09/03/16 14:02 101/57 09/03/16 13:37 74 14 100 09/03/16 13:32 108/66 09/03/16 13:07 69 16 100 09/03/16 13:02 118/71 09/03/16 12:40 67 21 99 09/03/16 12:37 65 16 100 09/03/16 12:32 116/67 09/03/16 12:24 70 18 98 09/03/16 12:14 73 09/03/16 12:09 113/62 09/03/16 10:59 36.5 106 20 115/69 97 Room Air Physical Exam GENERAL: Patient awake, alert, oriented x 3. Patient appears to be in minimal distress. Patient follows commands. Patient does not appear toxic. Patient is adequately hydrated and well-nourished. SKIN: Patient appears pale. No erythema, cyanosis or rash HEENT: Normal head, pupils equal, reactive to light and accommodation. Ears normal. Oral cavity and posterior pharynx appear normal. Neck: Without adenopathy, no neck vein distention. LUNGS: Clear to auscultation. No wheezes, no rales, no rhonchi. HEART: No murmurs. No gallops. No rubs ABDOMEN: No masses, no rebound, no hepatomegaly or splenomegaly. EXTREMITIES: No signs of trauma. No pedal or pretibial edema. No calf or thigh tenderness. NEUROLOGIC: Cranial nerves II-XII within normal limits. No gross motor sensory function deficits. Medical Decision & Procedures Laboratory Results 09/03/16 12:05 Red Blood Count 3.16, Mean Corpuscular Volume 82.9, Mean Corpuscular Hemoglobin 25.9, Mean Corpuscular Hemoglobin Concent 31.3, Mean Platelet Volume 9.6, Neutrophils (%) (Auto) 63.4, Lymphocytes (%) (Auto) 12.9, Monocytes (%) (Auto) 10.4, Eosinophils (%) (Auto) 12.7, Basophils (%) (Auto) 0.5, Neutrophils # (Auto ) 5.31, Lymphocytes # (Auto) 1.08, Monocytes # (Auto) 0.87, Eosinophils # (Auto ) 1.06, Basophils # (Auto) 0.04 09/03/16 12:05 Test 09/03/16 12:05 6/10/17 13:55 White Blood Count 8.37 K/uL (4.8-10.8) Red Blood Count 3.16 M/uL (4.7-6.1) Hemoglobin 8.2 g/dL (14.0-18.0) Hematocrit 26.2 % (42-52) Mean Corpuscular Volume 82.9 fL (80-100) Mean Corpuscular Hemoglobin 25.9 pg (25-34) Mean Corpuscular Hemoglobin Concent 31.3 g/dl (32-36) Platelet Count 391 K/uL (130-400) Mean Platelet Volume 9.6 fL (7.4-10.4) Neutrophils (%) (Auto) 63.4 % Lymphocytes (%) (Auto) 12.9 % Monocytes (%) (Auto) 10.4 % Eosinophils (%) (Auto) 12.7 % Basophils (%) (Auto) 0.5 % Neutrophils # (Auto) 5.31 K/uL (1.4-6.5) Lymphocytes # (Auto) 1.08 K/uL (1.2-3.4) Monocytes # (Auto) 0.87 K/uL (0.11-0.59) Eosinophils # (Auto) 1.06 K/uL (0-0.5) Basophils # (Auto) 0.04 K/uL (0-0.2) RDW Standard Deviation 42.4 fL (36.4-46.3) RDW Coefficient of Variation 13.8 % (11.5-14.5) Immature Granulocyte % (Auto) 0.1 % Immature Granulocyte # (Auto) 0.01 K/uL (0.00-0.02) Anion Gap 7.0 mmol/L (3-11) Est Creatinine Clear Calc Drug Dose 123.3 ml/min Estimated GFR () 123.3 Estimated GFR (Non- 106.4 BUN/Creatinine Ratio 5.3 (10-20) Calcium Level 8.0 mg/dl (8.5-10.1) Total Bilirubin 0.4 mg/dl (0.2-1) Aspartate Amino Transf (AST/SGOT) 22 U/L (15-37) Alanine Aminotransferase (ALT/SGPT) 26 U/L (12-78) Alkaline Phosphatase 50 U/L (45-117) Total Protein 6.2 gm/dl (6.4-8.2) Albumin 2.9 gm/dl (3.4-5.0) Globulin 3.3 gm/dl (2.5-4.0) Albumin/Globulin Ratio 0.9 (0.9-2) Lipase 91 U/L (73-393) Urine Color YELLOW Urine Appearance CLEAR (CLEAR) Urine pH 6.5 (4.5-7.5) Urine Specific [place] 1.014 (1.000-1.030) Urine Protein NEG (NEG) Urine Glucose (UA) NEG (NEG) Urine Ketones NEG (NEG) Urine Occult Blood NEG (NEG) Urine Nitrite NEG (NEG) Urine Bilirubin NEG (NEG) Urine Urobilinogen NEG (NEG) Urine Leukocyte Esterase NEG (NEG) Laboratory results as stated above per my review. Medications Administered Medications (Trade) Dose Ordered Sig/Josias Route Start Time Stop Time Status Last Admin Dose Admin Sodium Chloride 2,000 ml @ 1,000 mls/hr Q2H ONCE IV 09/03/16 11:45 09/03/16 13:44 DC 09/03/16 12:05 1,000 MLS/HR ED Course 1142: Past medical records reviewed. The patient was evaluated in room A11B. A complete history and physical examination was performed. 1145: Ordered Sodium Chloride 2000 ml @ 1000 mls/hr IV, Zofran Inj 4 mg IV. 1357: I reevaluated the patient and he is feeling much better. We are awaiting a stool specimen from him. 1425: I reevaluated the patient and he is going to give a stool sample at home. I discussed all the exam findings with him and I discussed the treatment plan. He verbalized complete understanding and agreement. He is ready to go home. Medical Decision Nurses notes reviewed. Medical history sheet reviewed. Differential diagnosis includes but is not limited to: ulcerative colitis flare, c-diff, other bacterial stool pathogens, anemia, dehydration. The patient has a long history of ulcerative colitis and currently is having a flare. Multiple labs and urinalysis were obtained. Please see above. The patient is anemic again. I do not believe he requires transfusion today. Scheduled to have Remicade in the near future. The patient's symptoms subsided prior to his discharge. He will be sent home with Zofran. The patient was able to drink fluids prior to his discharge. We discussed the option of steroids but he would rather not start another steroid regimen. The patient was and unable to provide a stool specimen here but will bring one in from home. Medication Reconciliation: I attest that I have personally reviewed the patient' s current medication list. Blood pressure Screening: Patient was found to have normal blood pressure on screening and does not require follow up. Impression Primary Impression: Ulcerative pancolitis Scribe Attestation The scribe's documentation has been prepared under my direction and personally reviewed by me in its entirety. I confirm that the note above accurately reflects all work, treatment, procedures, and medical decision making performed by me. Departure Information Dispostion Home / Self-Care Prescriptions Ondasetron Odt (ZOFRAN ODT) 4 Mg Tab 4 MG SL Q4 for Nausea, #10 TAB Prov: Kb Chance M.D. 09/03/16 Referrals No Doctor, Assigned (PCP) Pete Klein D.O. Forms HOME CARE DOCUMENTATION FORM, IMPORTANT VISIT INFORMATION Patient Instructions My [facility] Additional Instructions 1 Zofran every 4 hours as needed for nausea. Drink at least 3-4 quarts of liquid over the next 24 hours. Continue all of your current medications as prescribed. Follow-up with your western philosophy professor as soon as possible. Return here sooner if symptoms are getting worse again. Bring a stool specimen in for analysis.
[2016-09-03 12:15] LABS: BASO % 0.5 %; BASO ABS # 0.04 K/uL (0-0.2); EOS % 12.7 %; HEMATOCRIT 26.2 % (42-52); IG% 0.1 %; LYMPH % 12.9 %; LYMPH ABS # 1.08 K/uL (1.2-3.4); MEAN CELL VOLUME 82.9 fL (80-100); MEAN CORPUSCULAR HEMOGLOBIN 25.9 pg (25-34); MEAN CORPUSCULAR HGB CONC 31.3 g/dl (32-36); MEAN PLATELET VOLUME 9.6 fL (7.4-10.4); MONO % 10.4 %; NEUT % 63.4 %; PLATELET COUNT 391 K/uL (130-400); RED BLOOD COUNT 3.16 M/uL (4.7-6.1); WHITE BLOOD COUNT 8.37 K/uL (4.8-10.8)
[2016-09-03 12:32] LABS: BUN/CREATININE RATIO 5.3 (10-20); POTASSIUM 3.9 mmol/L (3.5-5.1)
[2016-09-03 12:35] LABS: ALB/GLOB RATIO 0.9 (0.9-2)
[2016-09-03 12:38] LABS: COMPLETE YES
[2016-09-03 14:01] LABS: URINE APPEARANCE CLEAR (CLEAR); URINE BILIRUBIN NEG (NEG); URINE COLOR YELLOW; URINE NITRITE NEG (NEG); URINE PH 6.5 (4.5-7.5); URINE SPECIFIC GRAVITY 1.014 (1.000-1.030); UROBILINOGEN NEG (NEG); ZZUR CULT IF INDIC CLEAN CATCH NO
[2016-09-03 14:03] LABS: MANUAL MICROSCOPIC REQUIRED? NO; REVIEW REQ? NO
[2016-09-03] MEDS ORDERED: ONDA4TAB10 SL (14:22)
[2016-09-03 14:35] VITALS: BP 105/61; PULSE 78; O2SAT 98
[2016-09-20] MEDS ORDERED: FERR1TAB23 PO (11:29)
== END 2016-09-03 14:36 | disposition home or self-care (01) ==
LOC: C.EDB 10:55 → C.EDA 14:36
DX: K51.00 Ulcerative (chronic) pancolitis without complications (principal); J45.909 Unspecified asthma, uncomplicated; D50.0 Iron deficiency anemia secondary to blood loss (chronic); Z83.3 Family history of diabetes mellitus; Z82.49 Family history of ischemic heart disease and other diseases of the circulatory system

== ENCOUNTER → 2016-09-03 | Outpatient (CLI) | payer BC, OTHER ==
--- NOTE | 2016-09-08 13:24 | CODING QUERY NO DIAGNOSIS ---
TREATMENT RENDERED WITHOUT A DIAGNOSIS 93 To promote full compliance with coding requirements relating to patient care, physician participation is requested in all cases of cloth checker uncertainty. Please assist us with providing a diagnosis/symptom for the test(s) below: A diagnosis/symptom was not documented on your Order. A valid diagnosis/symptom is required to bill all insurances. Please remember that we are unable to code a diagnosis of rule out, probable, possible, questionable, or suspected. DOS 09/03/16 Tests that require a diagnosis: * STOOL CULTURE DIAGNOSIS: * CDIFF TOXIN B GENE DIAGNOSIS: Provider Signature: Date: Thank you Emmy Yepez Health Information Management Once completed, please kindly fax back to [phone] For questions please call [phone]
== END | disposition home or self-care (01) ==
LOC: C.LAB 16:09
PROVIDERS: ATTEND Emergency Medicine
DX: K51.00 Ulcerative (chronic) pancolitis without complications (principal)

== ENCOUNTER 2016-09-28 09:48 | Inpatient (IN) | payer BC, OTHER ==
[2016-09-20 11:29] VITALS: BMI 24.0
[2016-09-28] VITALS (10 sets, daily range): BP systolic 101–116; BP diastolic 66–75; PULSE 75–88; TEMP 36.8–37.3; O2SAT 98–100; Ht 182.9 cm; Wt 79.8 kg
[~2016-09-28] VITALS: Ht 182.9 cm; Wt 79.8 kg
[~2016-09-28 09:48] MED LIST changes: +FERR1TAB23 PO; -FRRS300 PO; -MESA1.2T PO; -PRD10 PO; -PRED20TA PO; +RMCI IV; +SODIUM CHLORIDE 0.9% 500ML 500 ML IV ONE
--- NOTE | 2016-09-28 10:04 | Endo History and Physical ---
History & Physical Date of Service: Sep 28, 2016. Chief Complaint: Ulcerative colitis and Rectal bleeding Referring Physician: SYLVIA Chau History of Present Illness 21 yo CM who presents for colonoscopy secondary to ulcerative colitis and rectal bleeding. Past Surgical History Hx Cardiac Surgery: No Hx Internal Defibrillator: No Hx Pacemaker: No Hx Abdominal Surgery: No Hx Post-Op Nausea and Vomiting: No Hx Cancer Surgery: No Hx Thoracic Surgery: No Hx Orthopedic: Yes (LEFT ANKLE (RE-SET, HAD ANESTHESIA)) Hx Urinary Tract Surgery: No Family History None Social History Smoking Status: Never Smoker Hx Substance Use: No Hx Alcohol Use: No Allergies Coded Allergies: NO KNOWN DRUG ALLERGIES (Verified Allergy, Unknown, ., 09/20/16) Current Medications Reported Home Medications Medications Dose Route/Sig Max Daily Dose Days Date Category Iron (Ferrous Sulfate) 325 Mg Tab 325 Mg PO TID 09/20/16 Reported Remicade (Infliximab) 100 Mg/10 Ml Inj 1 Dose IV Q8 WEEKS 09/03/16 Reported Vital Signs Weight (Kilograms): 79.55 Height (Feet): 6 Height (Inches): 0 Physical Exam General Appearance: WD/WN, no apparent distress Respiratory/Chest: Auscultation: breath sounds normal Cardiovascular: Heart Auscultation: RRR Abdomen: Bowel Sounds: normal Inspection & Palpation: soft, non-distended, no tenderness, guarding & rebound Assessment and Plan Assessment: 21 yo CM who presents for colonoscopy secondary to ulcerative colitis and rectal bleeding. Plan: Proceed with colonoscopy.
[2016-09-28] MEDS ORDERED: PROPOFOL IV EMULSION 10 MG/ML 20 ML VIAL IV ONE (10:54)
[2016-09-28] MEDS ORDERED: LIDOCAINE HCL 2% 2 ML VIAL (20MG/ML) ONE (10:54)
--- NOTE | 2016-09-28 11:45 | GI REPORT ---
Procedure Date: 09/28/2016 11:06 AM THIS REPORT HAS BEEN AMENDED Addendum Number: 1 Addendum Date: 09/28/2016 3:48:38 PM Decision was made to admit the patient for ongoing care. Discussed case with Hospitalist service, and Dr. Huitron admitted the patient for further care. Procedure: Colonoscopy Indications: Disease activity assessment of chronic ulcerative pancolitis Medicines: Monitored Anesthesia Care Complications: No immediate complications. Estimated Blood Loss: Estimated blood loss: none. Procedure: Pre-Anesthesia Assessment: - Prior to the procedure, a History and Physical was performed, and patient medications and allergies were reviewed. The patient's tolerance of previous anesthesia was also reviewed. The risks and benefits of the procedure and the sedation options and risks were discussed with the patient. All questions were answered, and informed consent was obtained. Prior Anticoagulants: The patient has taken no previous anticoagulant or antiplatelet agents. ASA Grade Assessment: II - A patient with mild systemic disease. After reviewing the risks and benefits, the patient was deemed in satisfactory condition to undergo the procedure. After I obtained informed consent, the scope was passed under direct vision. Throughout the procedure, the patient's blood pressure, pulse, and oxygen saturations were monitored continuously. The scope was introduced through the anus and advanced to the terminal ileum. The colonoscopy was performed without difficulty. The patient tolerated the procedure well. The quality of the bowel preparation was good. The terminal ileum, ileocecal valve, appendiceal orifice, and rectum were photographed. Findings: Inflammation characterized by confluent ulcerations was found in a continuous and circumferential pattern from the rectum to the cecum. No sites were spared. This was severe in severity. Biopsies were taken with a cold forceps for histology. Non-bleeding internal hemorrhoids were found during retroflexion. The hemorrhoids were small. Impression: - Inflammation was found from the rectum to the cecum secondary to pancolitis ulcerative colitis. Biopsied. - Non-bleeding internal hemorrhoids. Recommendation: - Resume previous diet. - Continue present medications. - Repeat colonoscopy for surveillance based on pathology results. - Return to primary care physician as previously scheduled. Pete Klein DO 09/28/2016 11:44:37 AM This report has been signed electronically. Note Initiated On: 09/28/2016 11:06 AM I attest to the content of the Intraoperative Record and orders documented therein, exceptions below Pete Klein DO 09/28/2016 3:49:17 PM This report has been signed electronically.
--- NOTE | 2016-09-28 11:50 | Anesthesiology Progress Note ---
Anesthesia Post Op Note Date & Time Sep 28, 2016 at 11:50 Vital Signs Pain Intensity: 0 Vital Signs Past 12 Hours Date Time Temp Pulse Resp B/P (MAP) Pulse Ox O2 Delivery O2 Flow Rate FiO2 09/28/16 11:38 89 18 104/71 (82) 99 Room Air 09/28/16 10:07 36.8 83 18 107/61 (76) 97 Room Air Notes Mental Status: alert / awake / arousable, participated in evaluation Pt Amnestic to Procedure: Yes Nausea / Vomiting: adequately controlled Pain: adequately controlled Airway Patency, RR, SpO2: stable & adequate BP & HR: stable & adequate Hydration State: stable & adequate Anesthetic Complications: no major complications apparent
[2016-09-28 15:21] LABS: BASO % 0.5 %; EOS % 13.2 %; HEMATOCRIT 24.5 % (42-52); MEAN CELL VOLUME 84.2 fL (80-100); MEAN CORPUSCULAR HEMOGLOBIN 25.1 pg (25-34); MEAN PLATELET VOLUME 9.5 fL (7.4-10.4); MONO % 9.7 %; NEUT % 53.4 %; PLATELET COUNT 373 K/uL (130-400); RED BLOOD COUNT 2.91 M/uL (4.7-6.1); WHITE BLOOD COUNT 8.16 K/uL (4.8-10.8)
[2016-09-28 15:22] LABS: BASO ABS # 0.04 K/uL (0-0.2); IG% 0.2 %; LYMPH ABS # 1.88 K/uL (1.2-3.4)
[2016-09-28 15:31] LABS: MEAN CORPUSCULAR HGB CONC 29.8 g/dl (32-36)
[2016-09-28] MEDS: FAMOTIDINE IV INJ 20 MG in DEXTROSE 5% 100ML 100 ML IV SCH (15:39)
[2016-09-28] MEDS: NSS + 20MEQ KCL 1000ML 1,000 ML IV SCH (15:39)
[2016-09-28 16:12] LABS: ANISOCYTOSIS PRESENT; COMPLETE YES; LARGE PLATELETS 1+; POLYCHROMASIA 1+; TEAR DROP CELLS OCCASIONAL
[2016-09-28 16:19] LABS: ALB/GLOB RATIO 0.9 (0.9-2); CALCIUM 7.4 mg/dl (8.5-10.1); CREATININE 0.98 mg/dl (0.60-1.40); MAGNESIUM 2.1 mg/dl (1.8-2.4); POTASSIUM 3.9 mmol/L (3.5-5.1)
--- NOTE | 2016-09-28 17:12 | Gastrointestinal Consultation ---
Gastrointestinal Consultation Date of Consultation: Sep 28, 2016 Attending Physician: Dr. Huitron Consulting Physician: Dr. Klein Reason for Consultation: Anemia, Ulcerative colitis History of Present Illness Patient is a 21 year old male who presented to the outpatient GI lab today for colonoscopy for disease activity assessment of his Ulcerative colitis. He has been having symptoms including diarrhea and rectal bleeding, and was seen in the ER approximately 2 weeks ago, at which time he was noted to have a Hgb around 8 per the patient. He has been taking Oral iron therapy. He has been on Remicade 5mg/kg every 8 weeks, and last received an infusion on 09/09/2016, however, he has continued to have symptoms. He was last seen in our office in March, and was having symptoms at that time as well, and was placed on a Prednisone taper which he completed. He admits that while on Prednisone therapy his symptoms did improve. Due to persistent symptoms he did recently stop his Asacol therapy, as he did not feel that it was helpful. On today's colonoscopy he was noted to have severe activity of his Ulcerative pancolitis. Decision was made to admit the patient for persistent symptoms of diarrhea and rectal bleeding, as well as his anemia. He states that he is having BM's approximately 6-8 times per day. He states that it has been worsening over the past few weeks, and cannot identify any alleviating factors. Past Medical/Surgical History Medical Problems: (1) Anemia Status: Acute Past Medical History: Ulcerative pancolitis Iron deficiency anemia secondary to chronic blood loss Past Surgical History: None Family History Cancer Diabetes mellitus Heart disease Hypertension Kidney disease Kidney stones Social History Smoking Status: Never Smoker Alcohol Use: occasionally Marital Status: single Occupation Status: employed Allergies Coded Allergies: NO KNOWN DRUG ALLERGIES (Verified Allergy, Unknown, ., 09/20/16) Current Medications Home Meds and Scripts Medications Dose Route/Sig Max Daily Dose Days Date Category Iron (Ferrous Sulfate) 325 Mg Tab 325 Mg PO TID 09/20/16 Reported Remicade (Infliximab) 100 Mg/10 Ml Inj 1 Dose IV Q8 WEEKS 09/03/16 Reported Review of Systems Constitutional: No fever, No chills Eyes: No eye pain, No redness ENT: No hearing loss Respiratory: No cough, No sputum, No shortness of breath, No dyspnea on exertion Cardiac: No chest pain, No palpitations Abdomen: + diarrhea, + GI bleeding, No nausea, No vomiting, No constipation, No dysphagia, No odynophagia, No jaundice Musculoskeletal: No joint pain Male : No dysuria, No hematuria Psych: No depression symptoms Endo: + fatigue Skin: No rash Physical Exam Date Time Temp Pulse Resp B/P (MAP) Pulse Ox O2 Delivery O2 Flow Rate FiO2 09/28/16 16:03 37.0 80 18 113/71 (85) 100 Room Air 09/28/16 14:15 37.2 88 18 111/74 Room Air 09/28/16 12:13 80 18 116/72 (87) 99 Room Air 09/28/16 12:00 93 18 118/84 (95) 99 Room Air 09/28/16 11:38 89 18 104/71 (82) 99 Room Air 09/28/16 10:07 36.8 83 18 107/61 (76) 97 Room Air General Appearance: no apparent distress Eyes: PERRL, EOMI ENT: hearing grossly normal Neck: supple Respiratory/Chest: lungs clear, normal breath sounds Cardiovascular: regular rate, rhythm Abdomen: normal bowel sounds, soft, + tenderness Extremities: no pedal edema Neurologic/Psych: alert, normal mood/affect, oriented x 3 Skin: + pallor Laboratory Results Last 24 Hours Test 09/28/16 15:00 09/28/16 15:41 White Blood Count 8.16 K/uL Red Blood Count 2.91 M/uL Hemoglobin 7.3 g/dL Hematocrit 24.5 % Mean Corpuscular Volume 84.2 fL Mean Corpuscular Hemoglobin 25.1 pg Mean Corpuscular Hemoglobin Concent 29.8 g/dl Platelet Count 373 K/uL Mean Platelet Volume 9.5 fL Neutrophils (%) (Auto) 53.4 % Lymphocytes (%) (Auto) 23.0 % Monocytes (%) (Auto) 9.7 % Eosinophils (%) (Auto) 13.2 % Basophils (%) (Auto) 0.5 % Neutrophils # (Auto) 4.35 K/uL Lymphocytes # (Auto) 1.88 K/uL Monocytes # (Auto) 0.79 K/uL Eosinophils # (Auto) 1.08 K/uL Basophils # (Auto) 0.04 K/uL RDW Standard Deviation 46.0 fL RDW Coefficient of Variation 14.8 % Immature Granulocyte % (Auto) 0.2 % Immature Granulocyte # (Auto) 0.02 K/uL Large Platelets 1+ Polychromasia 1+ Anisocytosis PRESENT Tear Drop Cells OCCASIONAL Sodium Level 140 mmol/L Potassium Level 3.9 mmol/L Chloride Level 107 mmol/L Carbon Dioxide Level 29 mmol/L Anion Gap 4.0 mmol/L Blood Urea Nitrogen 6 mg/dl Creatinine 0.98 mg/dl Est Creatinine Clear Calc Drug Dose 128.7 ml/min Estimated GFR () 125.4 Estimated GFR (Non- 108.2 BUN/Creatinine Ratio 6.0 Random Glucose 87 mg/dl Calcium Level 7.4 mg/dl Magnesium Level 2.1 mg/dl Iron Level 7 mcg/dl Total Iron Binding Capacity 191 mcg/dl Total Bilirubin 0.3 mg/dl Aspartate Amino Transf (AST/SGOT) 24 U/L Alanine Aminotransferase (ALT/SGPT) 21 U/L Alkaline Phosphatase 41 U/L Total Protein 4.7 gm/dl Albumin 2.2 gm/dl Globulin 2.5 gm/dl Albumin/Globulin Ratio 0.9 Impression Patient is a 21 year old male with iron deficiency anemia and diarrhea secondary to severe disease activity of his Ulcerative pancolitis. Plan 1) Transfuse PRN to keep H/H around 8/24 2) Start Solu-medrol 40mg IV BID 3) Discussed case with Dr. Montoya in Pathology, and asked that he stain for CMV 4) Will increase Remicade to 10mg/kg every 6 weeks 5) Will need steroid taper at time of discharge 6) Clear liquid diet
[2016-09-28] MEDS: METHYLPREDNISOLONE IV 40 MG in SYRINGE 0 ML IV SCH (18:08)
[2016-09-28 19:44] LABS: HEMATOCRIT 26.2 % (42-52)
[2016-09-29] VITALS (10 sets, daily range): BP systolic 93–124; BP diastolic 54–74; PULSE 60–95; TEMP 36.3–37.2; O2SAT 97–100
[2016-09-29] MEDS: NSS + 20MEQ KCL 1000ML 1,000 ML IV SCH ×3 (01:33→21:20)
[2016-09-29] MEDS: FAMOTIDINE IV INJ 20 MG in DEXTROSE 5% 100ML 100 ML IV SCH ×2 (04:15→16:05)
[2016-09-29 04:39] LABS: HEMATOCRIT 33.6 % (42-52)
--- NOTE | 2016-09-29 04:46 | History and Physical ---
History & Physical Date & Time of Service: Sep 29, 2016 at 04:39. Patient was examined on 09/28/2016 Chief Complaint: Abd Pain,Ulcerative Colitis,Beeper [id number] Primary Care Physician: No Doctor, Assigned History of Present Illness Source: patient, parent The patient is a 21-year-old male who presented to the endoscopy suite for colonoscopy secondary to ulcerative colitis and rectal bleeding. We'll being examined by Dr. Klein, his nurses medical assistants phlebotomists, he was noted to be very pale and colonoscopy showed a very erythematous colon. We've been asked to directly admit the patient for further evaluation and treatment. He does report fatigue , occasional dyspnea on exertion, and intermittent abdominal pains. Past Medical/Surgical History Medical Problems: (1) Asthma Status: Chronic Family History Cancer Diabetes mellitus Heart disease Hypertension Kidney disease Kidney stones Social History Smoking Status: Never Smoker Smokeless Tobacco Use: No Alcohol Use: none Marital Status: single Occupational Status: employed Multi-Drug Resistant Organisms History of MDRO: No Allergies Coded Allergies: NO KNOWN DRUG ALLERGIES (Verified Allergy, Unknown, ., 09/20/16) Home Medications Scheduled Ferrous Sulfate (Iron), 325 MG PO TID Infliximab (Remicade), 1 DOSE IV Q8 WEEKS Review of Systems The patient denies chest pain, palpitations, shortness of breath, cough, lower extremity swelling, sore throat, fevers, chills, sweats, nausea, vomiting, blood in urine, dysuria, urinary frequency or urgency, lightheadedness, dizziness, headache, memory loss, rash, abnormal bruising , imbalance, focal or generalized weakness, numbness or tingling in arms or legs, arthralgias or myalgias, back or neck pain, night sweats. The review of systems is otherwise negative other than for that already noted above, and at least 10 systems have been reviewed. Physical Exam Vital Signs Date Time Temp Pulse Resp B/P (MAP) Pulse Ox O2 Delivery O2 Flow Rate FiO2 09/29/16 04:00 36.7 60 20 107/67 (80) 100 Room Air 09/29/16 04:00 Room Air 09/29/16 01:24 67 16 107/67 97 09/29/16 00:54 74 16 98/60 09/29/16 00:34 36.8 95 16 108/63 97 09/29/16 00:00 Room Air 09/29/16 00:00 36.8 95 16 108/63 (78) 97 Room Air 09/28/16 22:53 37.0 88 16 116/72 98 09/28/16 22:20 37.1 75 16 111/75 98 09/28/16 21:22 37.0 80 16 105/70 98 09/28/16 20:52 37.3 88 16 101/66 99 09/28/16 20:35 36.8 84 16 110/66 99 09/28/16 20:00 99 Room Air 09/28/16 19:12 37.2 80 18 108/70 (83) 98 Room Air 09/28/16 16:03 37.0 80 18 113/71 (85) 100 Room Air 09/28/16 16:00 99 Room Air 09/28/16 14:15 37.2 88 18 111/74 Room Air 09/28/16 12:13 80 18 116/72 (87) 99 Room Air 09/28/16 12:00 93 18 118/84 (95) 99 Room Air 09/28/16 11:38 89 18 104/71 (82) 99 Room Air 09/28/16 10:07 36.8 83 18 107/61 (76) 97 Room Air The patient is awake, alert and oriented 3, appears very pale, normocephalic and atraumatic, lying in bed and in no acute distress. HEENT--PERRL, EOMI, mucous membranes and oropharynx dry. Neck--supple, no JVD or bruits, thyroid normal, trachea midline, no adenopathy. Heart--normal S1 and S2, no extra beats, no murmurs, rubs or gallops. Lungs--clear bilaterally with good air movement, no respiratory distress, no accessory muscle use. Abdomen--normal bowel sounds and soft, nontender and nondistended, no hernias or masses, no organomegaly. Extremities--no cyanosis, clubbing or edema. There are good distal pulses b/l. Dermatologic--normal skin turgor, very pale, warm and dry, no abnormal lymph nodes, no rash. Neurologic--cranial nerves II through XII grossly intact, motor and sensory examination normal. Rheumatologic--normal range of motion, nontender, muscles and joints. Psychiatric--normal affect. Diagnostics Laboratory Results Results Past 24 Hours Test 09/28/16 15:00 09/28/16 19:30 09/29/16 03:49 Range/Units White Blood Count 8.16 4.8-10.8 K/uL Red Blood Count 2.91 4.7-6.1 M/uL Hemoglobin 7.3 8.0 14.0-18.0 g/dL Hematocrit 24.5 26.2 42-52 % Mean Corpuscular Volume 84.2 80-100 fL Mean Corpuscular Hemoglobin 25.1 25-34 pg Mean Corpuscular Hemoglobin Concent 29.8 32-36 g/dl Platelet Count 373 130-400 K/uL Mean Platelet Volume 9.5 7.4-10.4 fL Neutrophils (%) (Auto) 53.4 % Lymphocytes (%) (Auto) 23.0 % Monocytes (%) (Auto) 9.7 % Eosinophils (%) (Auto) 13.2 % Basophils (%) (Auto) 0.5 % Neutrophils # (Auto) 4.35 1.4-6.5 K/uL Lymphocytes # (Auto) 1.88 1.2-3.4 K/uL Monocytes # (Auto) 0.79 0.11-0.59 K/uL Eosinophils # (Auto) 1.08 0-0.5 K/uL Basophils # (Auto) 0.04 0-0.2 K/uL RDW Standard Deviation 46.0 36.4-46.3 fL RDW Coefficient of Variation 14.8 11.5-14.5 % Immature Granulocyte % (Auto) 0.2 % Immature Granulocyte # (Auto) 0.02 0.00-0.02 K/uL Large Platelets 1+ Polychromasia 1+ Anisocytosis PRESENT Tear Drop Cells OCCASIONAL Sodium Level 140 136-145 mmol/L Potassium Level 3.9 3.5-5.1 mmol/L Chloride Level 107 98-107 mmol/L Carbon Dioxide Level 29 21-32 mmol/L Anion Gap 4.0 3-11 mmol/L Blood Urea Nitrogen 6 7-18 mg/dl Creatinine 0.98 0.60-1.40 mg/dl Est Creatinine Clear Calc Drug Dose 128.7 ml/min Estimated GFR () 125.4 Estimated GFR (Non- 108.2 BUN/Creatinine Ratio 6.0 10-20 Random Glucose 87 70-99 mg/dl Calcium Level 7.4 8.5-10.1 mg/dl Magnesium Level 2.1 1.8-2.4 mg/dl Iron Level 7 35-175 mcg/dl Total Iron Binding Capacity 191 250-450 mcg/dl Total Bilirubin 0.3 0.2-1 mg/dl Aspartate Amino Transf (AST/SGOT) 24 15-37 U/L Alanine Aminotransferase (ALT/SGPT) 21 12-78 U/L Alkaline Phosphatase 41 45-117 U/L Total Protein 4.7 6.4-8.2 gm/dl Albumin 2.2 3.4-5.0 gm/dl Globulin 2.5 2.5-4.0 gm/dl Albumin/Globulin Ratio 0.9 0.9-2 C-Reactive Protein 0.72 0-0.29 mg/dl Microbiology Results 09/28/16 C.difficile Toxin B Gene (PCR) - Final, Complete No C. difficile toxin B gene detected Impression Assessment and Plan Symptomatic anemia secondary to Ulcerative pancolitis--the patient is directly admitted from the endoscopy suite to the telemetry unit for close monitoring. Hemoglobin performed stat was 7.2. He'll be transfused 2 units of packed red blood cells, we'll have serial H&H's every 6 hours, and we'll consult Dr. Klein for management of ulcerative colitis. He will be placed on normal saline with potassium chloride 20 mEq at 100 mils per hour. We'll follow serial BMP and magnesium level as well. Level of Care Telemetry Advanced Directives Existing Advance Directive: No Existing Living Will: No Existing Power of Casino Runner: No Resuscitation Status FULL RESUSCITATION VTE Prophylaxis VTE Risk Assessment Done? Y/N: Yes Risk Level: Low Given or contraindicated: SCD's Social Service Consult None Apply
[2016-09-29 04:55] LABS: INR 1.1 (0.9-1.1); PARTIAL THROMBOPLASTIN RATIO 0.9; PROTHROMBIN TIME (PATIENT) 11.3 SECONDS (9.0-12.0)
[2016-09-29 05:06] LABS: BUN/CREATININE RATIO 4.7 (10-20); CALCIUM 7.9 mg/dl (8.5-10.1); CREATININE 0.91 mg/dl (0.60-1.40); MAGNESIUM 2.3 mg/dl (1.8-2.4); POTASSIUM 4.2 mmol/L (3.5-5.1)
[2016-09-29] MEDS: METHYLPREDNISOLONE IV 40 MG in SYRINGE 0 ML IV SCH ×2 (05:55→18:00)
[2016-09-29 08:01] LABS: BASO % 0.1 %; BASO ABS # 0.01 K/uL (0-0.2); COMPLETE YES; HEMATOCRIT 29.6 % (42-52); IG% 0.4 %; LYMPH % 10.1 %; LYMPH ABS # 0.86 K/uL (1.2-3.4); MEAN CELL VOLUME 84.1 fL (80-100); MEAN CORPUSCULAR HEMOGLOBIN 26.4 pg (25-34); MEAN CORPUSCULAR HGB CONC 31.4 g/dl (32-36); MEAN PLATELET VOLUME 10.4 fL (7.4-10.4); MONO % 6.6 %; NEUT % 82.8 %; PLATELET COUNT 379 K/uL (130-400); RED BLOOD COUNT 3.52 M/uL (4.7-6.1); WHITE BLOOD COUNT 8.52 K/uL (4.8-10.8)
--- NOTE | 2016-09-29 09:45 | Gastroenterology Progress Note ---
Progress Note Date of Service: Sep 29, 2016 Subjective Pt evaluation today including: conversation w/ patient, physical exam, chart review, lab review, review of studies, review of inpatient medication list Patient reports feeling better since receiving blood transfusion last evening. Still with some fatigue. No significant abdominal pain reported at present. Continues with some bloody, loose stools. On clear liquids. Requesting dietary advancement stating he is hungry having been on clears x 3 days. CRP was elevated at 0.72. H&H 9.3 and 29.6 today. Continues IV Solu-Medrol 40 mg IV BID. Review of Systems Constitutional: + fatigue, No fever, No chills Eyes: No eye pain, No redness Respiratory: No problem reported Cardiac: No problem reported Abdomen: + see HPI Musculoskeletal: No joint pain Neuro: No problem reported Psych: No problem reported Skin: No rash Medications Current Inpatient Medications Medications (Trade) Dose Ordered Sig/Josias Route Start Time Stop Time Status Last Admin Dose Admin Potassium Chloride/Sodium Chloride 1,000 ml @ 100 mls/hr Q10H IV 09/28/16 15:30 10/28/16 15:29 09/29/16 01:33 100 MLS/HR Famotidine 20 mg/ Dextrose 102 ml @ 200 mls/hr Q12H IV 09/28/16 16:00 10/28/16 15:59 09/29/16 04:15 200 MLS/HR Methylprednisolone Sodium Succinate 40 mg/Syringe 0.64 ml @ 1.5 mls/min Q12H IV 09/28/16 18:00 10/28/16 17:59 09/29/16 05:55 1.5 MLS/MIN Objective Vital Signs Date Time Temp Pulse Resp B/P (MAP) Pulse Ox O2 Delivery O2 Flow Rate FiO2 09/29/16 07:46 37.2 76 16 105/60 (75) 100 Room Air 09/29/16 04:00 36.7 60 20 107/67 (80) 100 Room Air 09/29/16 04:00 Room Air 09/29/16 01:24 67 16 107/67 97 09/29/16 00:54 74 16 98/60 09/29/16 00:34 36.8 95 16 108/63 97 09/29/16 00:00 Room Air 09/29/16 00:00 36.8 95 16 108/63 (78) 97 Room Air 09/28/16 22:53 37.0 88 16 116/72 98 09/28/16 22:20 37.1 75 16 111/75 98 09/28/16 21:22 37.0 80 16 105/70 98 09/28/16 20:52 37.3 88 16 101/66 99 09/28/16 20:35 36.8 84 16 110/66 99 09/28/16 20:00 99 Room Air 09/28/16 19:12 37.2 80 18 108/70 (83) 98 Room Air 09/28/16 16:03 37.0 80 18 113/71 (85) 100 Room Air 09/28/16 16:00 99 Room Air 09/28/16 14:15 37.2 88 18 111/74 Room Air 09/28/16 12:13 80 18 116/72 (87) 99 Room Air 09/28/16 12:00 93 18 118/84 (95) 99 Room Air 09/28/16 11:38 89 18 104/71 (82) 99 Room Air 09/28/16 10:07 36.8 83 18 107/61 (76) 97 Room Air Physical Exam General Appearance: no apparent distress Eyes: EOMI ENT: hearing grossly normal Neck: supple Respiratory/Chest: lungs clear, normal breath sounds, no respiratory distress Cardiovascular: regular rate, rhythm, no gallop, no JVD Abdomen: normal bowel sounds, non tender, soft Extremities: normal inspection Neurologic/Psych: alert, normal mood/affect, oriented x 3 Skin: + pallor Laboratory Results Last 24 Hours Test 09/28/16 15:00 09/28/16 19:30 09/29/16 03:49 09/29/16 07:21 White Blood Count 8.16 K/uL 8.52 K/uL Red Blood Count 2.91 M/uL 3.52 M/uL Hemoglobin 7.3 g/dL 8.0 g/dL 10.2 g/dL 9.3 g/dL Hematocrit 24.5 % 26.2 % 33.6 % 29.6 % Mean Corpuscular Volume 84.2 fL 84.1 fL Mean Corpuscular Hemoglobin 25.1 pg 26.4 pg Mean Corpuscular Hemoglobin Concent 29.8 g/dl 31.4 g/dl Platelet Count 373 K/uL 379 K/uL Mean Platelet Volume 9.5 fL 10.4 fL Neutrophils (%) (Auto) 53.4 % 82.8 % Lymphocytes (%) (Auto) 23.0 % 10.1 % Monocytes (%) (Auto) 9.7 % 6.6 % Eosinophils (%) (Auto) 13.2 % 0.0 % Basophils (%) (Auto) 0.5 % 0.1 % Neutrophils # (Auto) 4.35 K/uL 7.06 K/uL Lymphocytes # (Auto) 1.88 K/uL 0.86 K/uL Monocytes # (Auto) 0.79 K/uL 0.56 K/uL Eosinophils # (Auto) 1.08 K/uL 0.00 K/uL Basophils # (Auto) 0.04 K/uL 0.01 K/uL RDW Standard Deviation 46.0 fL 46.4 fL RDW Coefficient of Variation 14.8 % 15.0 % Immature Granulocyte % (Auto) 0.2 % 0.4 % Immature Granulocyte # (Auto) 0.02 K/uL 0.03 K/uL Large Platelets 1+ Polychromasia 1+ Anisocytosis PRESENT Tear Drop Cells OCCASIONAL Sodium Level 140 mmol/L 141 mmol/L Potassium Level 3.9 mmol/L 4.2 mmol/L Chloride Level 107 mmol/L 108 mmol/L Carbon Dioxide Level 29 mmol/L 24 mmol/L Anion Gap 4.0 mmol/L 9.0 mmol/L Blood Urea Nitrogen 6 mg/dl 4 mg/dl Creatinine 0.98 mg/dl 0.91 mg/dl Est Creatinine Clear Calc Drug Dose 128.7 ml/min 138.6 ml/min Estimated GFR () 125.4 137.2 Estimated GFR (Non- 108.2 118.4 BUN/Creatinine Ratio 6.0 4.7 Random Glucose 87 mg/dl 104 mg/dl Calcium Level 7.4 mg/dl 7.9 mg/dl Magnesium Level 2.1 mg/dl 2.3 mg/dl Iron Level 7 mcg/dl Total Iron Binding Capacity 191 mcg/dl Total Bilirubin 0.3 mg/dl 0.6 mg/dl Aspartate Amino Transf (AST/SGOT) 24 U/L 22 U/L Alanine Aminotransferase (ALT/SGPT) 21 U/L 24 U/L Alkaline Phosphatase 41 U/L 48 U/L Total Protein 4.7 gm/dl 5.6 gm/dl Albumin 2.2 gm/dl 2.5 gm/dl Globulin 2.5 gm/dl Albumin/Globulin Ratio 0.9 C-Reactive Protein 0.72 mg/dl Prothrombin Time 11.3 SECONDS Prothromb Time International Ratio 1.1 Activated Partial Thromboplast Time 24.6 SECONDS Partial Thromboplastin Ratio 0.9 Direct Bilirubin 0.2 mg/dl Assessment and Plan Patient is a 21 year old male with iron deficiency anemia and diarrhea secondary to severe disease activity of his ulcerative pancolitis. 1. Continue Solu-Medrol 40 mg IV BID. 2. Will continue to trend H&H. 3. Okay to slowly advance diet to lactose free, low residue diet as tolerated but will start with full liquids. 4. Will be due for next Remicade infusion at increased dosing on 10/21/16 as just received Remicade on 09/09/16. 5. Supportive measures per primary team. Agree with SYLVIA Chau as above Abd: Soft, NT, ND, +BS Continue Solu-medrol 40mg IV BID Will need Prednisone taper at time of discharge for 8 weeks starting at 40mg Will check Remicade Ab and Remicade trough level prior to next infusion Will increase Remicade to 10mg/kg and decrease interval to every 6 weeks. Consider adding 6-MP to aid in maintenance of remission as outpatient.
[2016-09-29 14:16] LABS: HEMATOCRIT 29.8 % (42-52)
--- NOTE | 2016-09-29 21:33 | Family Medicine Progress Note ---
Progress Note Date of Service Sep 29, 2016. Subjective Pt evaluation today including: conversation w/ patient, physical exam, chart review, lab review, review of studies, conversation w/ workday financials consultant, review of inpatient medication list Pain: No pain at this time PO Intake: Has been on liquid diet Voiding: no voiding problems Pleasant 21 yo male who presented with ulcerative colitis flare up reports no pain at present. Still having loose stool but amount of blood in stool is decreasing Reports having slightly more energy since blood transfusion this morning. Constitutional: + weight loss, + fatigue Respiratory: + dyspnea on exertion Abdomen: + see HPI, + pain, + diarrhea, + GI bleeding Endo: + fatigue All Other Systems: Reviewed and Negative Medications Current Inpatient Medications Medications (Trade) Dose Ordered Sig/Josias Route Start Time Stop Time Status Last Admin Dose Admin Potassium Chloride/Sodium Chloride 1,000 ml @ 100 mls/hr Q10H IV 09/28/16 15:30 10/28/16 15:29 09/29/16 11:03 100 MLS/HR Famotidine 20 mg/ Dextrose 102 ml @ 200 mls/hr Q12H IV 09/28/16 16:00 10/28/16 15:59 09/29/16 16:05 200 MLS/HR Methylprednisolone Sodium Succinate 40 mg/Syringe 0.64 ml @ 1.5 mls/min Q12H IV 09/28/16 18:00 10/28/16 17:59 09/29/16 18:00 1.5 MLS/MIN Objective Vital Signs Date Time Temp Pulse Resp B/P (MAP) Pulse Ox O2 Delivery O2 Flow Rate FiO2 09/29/16 19:28 36.3 64 18 103/60 (74) 100 Room Air 09/29/16 16:00 Room Air 09/29/16 15:12 37.1 69 18 124/74 (91) 100 Room Air 09/29/16 12:00 Room Air 09/29/16 11:40 36.5 76 16 112/67 (82) 98 Room Air 09/29/16 08:00 Room Air 09/29/16 07:46 37.2 76 16 105/60 (75) 100 Room Air 09/29/16 04:00 36.7 60 20 107/67 (80) 100 Room Air 09/29/16 04:00 Room Air 09/29/16 01:24 67 16 107/67 97 09/29/16 00:54 74 16 98/60 09/29/16 00:34 36.8 95 16 108/63 97 09/29/16 00:00 Room Air 09/29/16 00:00 36.8 95 16 108/63 (78) 97 Room Air 09/28/16 22:53 37.0 88 16 116/72 98 09/28/16 22:20 37.1 75 16 111/75 98 Physical Exam General Appearance: WD/WN, no apparent distress Eyes: normal inspection ENT: hearing grossly normal Neck: supple, no JVD, trachea midline Respiratory/Chest: chest non-tender, lungs clear, normal breath sounds, no respiratory distress, no accessory muscle use Cardiovascular: regular rate, rhythm, no edema, no gallop, no JVD, no murmur Abdomen: normal bowel sounds, non tender, soft, no organomegaly, no pulsatile mass Extremities: non-tender, normal inspection, no pedal edema Neurologic/Psychiatric: 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, no motor/sensory deficits, alert, normal mood/affect, oriented x 3 Skin: no rash, + pallor Laboratory Results 09/29/16 07:21 Red Blood Count 3.52, Mean Corpuscular Volume 84.1, Mean Corpuscular Hemoglobin 26.4, Mean Corpuscular Hemoglobin Concent 31.4, Mean Platelet Volume 10.4, Neutrophils (%) (Auto) 82.8, Lymphocytes (%) (Auto) 10.1, Monocytes (%) (Auto) 6.6, Eosinophils (%) (Auto) 0.0, Basophils (%) (Auto) 0.1, Neutrophils # (Auto) 7.06, Lymphocytes # (Auto) 0.86, Monocytes # (Auto) 0.56, Eosinophils # (Auto) 0.00, Basophils # (Auto) 0.01 09/29/16 19:43 09/29/16 03:49 Test 09/29/16 03:49 09/29/16 07:21 Prothrombin Time 11.3 SECONDS (9.0-12.0) Prothromb Time International Ratio 1.1 (0.9-1.1) Activated Partial Thromboplast Time 24.6 SECONDS (21.0-31.0) Partial Thromboplastin Ratio 0.9 Anion Gap 9.0 mmol/L (3-11) Est Creatinine Clear Calc Drug Dose 138.6 ml/min Estimated GFR () 137.2 Estimated GFR (Non- 118.4 BUN/Creatinine Ratio 4.7 (10-20) Calcium Level 7.9 mg/dl (8.5-10.1) Magnesium Level 2.3 mg/dl (1.8-2.4) Total Bilirubin 0.6 mg/dl (0.2-1) Direct Bilirubin 0.2 mg/dl (0-0.2) Aspartate Amino Transf (AST/SGOT) 22 U/L (15-37) Alanine Aminotransferase (ALT/SGPT) 24 U/L (12-78) Alkaline Phosphatase 48 U/L (45-117) Total Protein 5.6 gm/dl (6.4-8.2) Albumin 2.5 gm/dl (3.4-5.0) White Blood Count 8.52 K/uL (4.8-10.8) Red Blood Count 3.52 M/uL (4.7-6.1) Hemoglobin 9.3 g/dL (14.0-18.0) Hematocrit 29.6 % (42-52) Mean Corpuscular Volume 84.1 fL (80-100) Mean Corpuscular Hemoglobin 26.4 pg (25-34) Mean Corpuscular Hemoglobin Concent 31.4 g/dl (32-36) Platelet Count 379 K/uL (130-400) Mean Platelet Volume 10.4 fL (7.4-10.4) Neutrophils (%) (Auto) 82.8 % Lymphocytes (%) (Auto) 10.1 % Monocytes (%) (Auto) 6.6 % Eosinophils (%) (Auto) 0.0 % Basophils (%) (Auto) 0.1 % Neutrophils # (Auto) 7.06 K/uL (1.4-6.5) Lymphocytes # (Auto) 0.86 K/uL (1.2-3.4) Monocytes # (Auto) 0.56 K/uL (0.11-0.59) Eosinophils # (Auto) 0.00 K/uL (0-0.5) Basophils # (Auto) 0.01 K/uL (0-0.2) RDW Standard Deviation 46.4 fL (36.4-46.3) RDW Coefficient of Variation 15.0 % (11.5-14.5) Immature Granulocyte % (Auto) 0.4 % Immature Granulocyte # (Auto) 0.03 K/uL (0.00-0.02) Assessment and Plan 21 yo male presented with bloody diarrhea and iron deficiency anemia secondary to active disease process of ulcerative colitis Current problems include: Iron deficiency anemia: Received 2 units PRBCs Continue to monitor H&H q6h Active ulcerative colitis Continue solumedrol 40 mg IV BID Slowly transition diet from liquids to lactose free low residue as described by GI team Will likely be discharged on steroid taper Refer to GI team regarding Remicaid therapy Code status: Full Code Dispo: Med/surg VTE: none. Fully mobile. Resident Physician Supervision Note: I was present with PGY1 Dr. Lesia Dennis during the history and exam. I discussed the case with the resident and agree with the findings and plan as documented in the note. Any exceptions or clarifications are listed here: none. Pt feeling better. No abd pain. Blood per rectum has slowed/nearly stopped. Still loose stool. Tolerating diet. Tele stable. VSS gen - looks chronically ill and pale but NAD mouth - MMM, no lesions heart - RRR lungs - CTA b/l abd - soft, NT, ND, BS+ ext - no edema Hb 9.3 A/P: 1. acute blood loss anemia 2nd to active ulcerative colitis. 2. iron deficiency anemia. 3. ulcerative colitis with flare/exacerbation in the setting of chronic remicade use. cont to monitor H/H Fe supplementation diet advancement per GI agree with IV steroids; likely prednisone taper after d/c no evidence of complicating CMV infection or c. diff Documented By: Danish Pinto MD Resident Tracking Resident Involvement: Resident Care Provided Care Provided: Adult [facility] Medicine
[2016-09-30 02:25] LABS: COMPLETE YES; HEMATOCRIT 29.9 % (42-52); IG% 0.2 %; LYMPH % 10.3 %; LYMPH ABS # 0.88 K/uL (1.2-3.4); MEAN CELL VOLUME 83.8 fL (80-100); MEAN CORPUSCULAR HEMOGLOBIN 25.5 pg (25-34); MEAN CORPUSCULAR HGB CONC 30.4 g/dl (32-36); MEAN PLATELET VOLUME 10.4 fL (7.4-10.4); MONO % 5.1 %; NEUT % 84.4 %; PLATELET COUNT 380 K/uL (130-400); RED BLOOD COUNT 3.57 M/uL (4.7-6.1); WHITE BLOOD COUNT 8.56 K/uL (4.8-10.8)
[2016-09-30 02:35] LABS: INR 1.1 (0.9-1.1); PARTIAL THROMBOPLASTIN RATIO 0.9; PROTHROMBIN TIME (PATIENT) 11.8 SECONDS (9.0-12.0)
[2016-09-30 02:46] LABS: ALT/SGPT 20 U/L (12-78); AST/SGOT 17 U/L (15-37); BLOOD UREA NITROGEN 4 mg/dl (7-18); BUN/CREATININE RATIO 4.9 (10-20); CALCIUM 7.6 mg/dl (8.5-10.1); CARBON DIOXIDE 27 mmol/L (21-32); CHLORIDE 113 mmol/L (98-107); CREATININE 0.77 mg/dl (0.60-1.40); GLUCOSE 126 mg/dl (70-99); MAGNESIUM 2.3 mg/dl (1.8-2.4); POTASSIUM 4.6 mmol/L (3.5-5.1); SODIUM 142 mmol/L (136-145)
[2016-09-30 02:49] LABS: ALKALINE PHOSPHATASE 41 U/L (45-117)
[2016-09-30] MEDS: FAMOTIDINE IV INJ 20 MG in DEXTROSE 5% 100ML 100 ML IV SCH ×2 (04:26→16:45)
[2016-09-30 04:30] VITALS: BP 97/61; PULSE 60; TEMP 36.6; O2SAT 98
[2016-09-30] MEDS: METHYLPREDNISOLONE IV 40 MG in SYRINGE 0 ML IV SCH ×2 (06:04→17:55)
[2016-09-30 08:00] VITALS: BP 100/64; PULSE 60; TEMP 36.6; O2SAT 100
[2016-09-30] MEDS: NSS + 20MEQ KCL 1000ML 1,000 ML IV SCH (08:05)
[2016-09-30 08:43] LABS: HEMATOCRIT 32.7 % (42-52)
--- NOTE | 2016-09-30 09:27 | Gastroenterology Progress Note ---
Progress Note Date of Service: Sep 30, 2016 Subjective Pt evaluation today including: conversation w/ patient, physical exam, chart review, lab review, review of inpatient medication list Patient reports feeling well today. States he has passed only 6 bowel movements over the past 24 hours. Minimal blood in stool. No abdominal pain, nausea or vomiting. Hemoglobin was noted to be 10.2 today. Continues IV Solu-Medrol 40 mg BID. Requests to have IV fluids discontinued. Review of Systems Constitutional: No fever, No chills, No weakness Eyes: No eye pain, No redness Respiratory: No problem reported Cardiac: No chest pain, No palpitations Abdomen: + see HPI Musculoskeletal: + joint pain (right hip) Psych: No problem reported Skin: No rash Medications Current Inpatient Medications Medications (Trade) Dose Ordered Sig/Josias Route Start Time Stop Time Status Last Admin Dose Admin Potassium Chloride/Sodium Chloride 1,000 ml @ 100 mls/hr Q10H IV 09/28/16 15:30 10/28/16 15:29 09/30/16 08:05 100 MLS/HR Famotidine 20 mg/ Dextrose 102 ml @ 200 mls/hr Q12H IV 09/28/16 16:00 10/28/16 15:59 09/30/16 04:26 200 MLS/HR Methylprednisolone Sodium Succinate 40 mg/Syringe 0.64 ml @ 1.5 mls/min Q12H IV 09/28/16 18:00 10/28/16 17:59 09/30/16 06:04 1.5 MLS/MIN Objective Vital Signs Date Time Temp Pulse Resp B/P (MAP) Pulse Ox O2 Delivery O2 Flow Rate FiO2 09/30/16 08:00 Room Air 09/30/16 08:00 36.6 60 16 100/64 (76) 100 Room Air 09/30/16 04:30 36.6 60 22 97/61 (73) 98 Room Air 09/30/16 00:01 Room Air 09/29/16 23:44 37.0 63 22 93/54 (67) 99 Room Air 09/29/16 20:00 Room Air 09/29/16 19:28 36.3 64 18 103/60 (74) 100 Room Air 09/29/16 16:00 Room Air 09/29/16 15:12 37.1 69 18 124/74 (91) 100 Room Air 09/29/16 12:00 Room Air 09/29/16 11:40 36.5 76 16 112/67 (82) 98 Room Air Physical Exam General Appearance: no apparent distress Eyes: EOMI ENT: hearing grossly normal Neck: supple Respiratory/Chest: lungs clear, normal breath sounds, no respiratory distress Cardiovascular: regular rate, rhythm, no gallop, no murmur Abdomen: normal bowel sounds, non tender, soft Extremities: no pedal edema Neurologic/Psych: alert, normal mood/affect, oriented x 3 Skin: warm/dry Laboratory Results Last 24 Hours Test 09/29/16 13:54 09/29/16 19:43 09/30/16 01:59 09/30/16 08:14 Hemoglobin 9.1 g/dL 9.4 g/dL 9.1 g/dL 10.2 g/dL Hematocrit 29.8 % 31.0 % 29.9 % 32.7 % White Blood Count 8.56 K/uL Red Blood Count 3.57 M/uL Mean Corpuscular Volume 83.8 fL Mean Corpuscular Hemoglobin 25.5 pg Mean Corpuscular Hemoglobin Concent 30.4 g/dl Platelet Count 380 K/uL Mean Platelet Volume 10.4 fL Neutrophils (%) (Auto) 84.4 % Lymphocytes (%) (Auto) 10.3 % Monocytes (%) (Auto) 5.1 % Eosinophils (%) (Auto) 0.0 % Basophils (%) (Auto) 0.0 % Neutrophils # (Auto) 7.22 K/uL Lymphocytes # (Auto) 0.88 K/uL Monocytes # (Auto) 0.44 K/uL Eosinophils # (Auto) 0.00 K/uL Basophils # (Auto) 0.00 K/uL RDW Standard Deviation 46.5 fL RDW Coefficient of Variation 15.0 % Immature Granulocyte % (Auto) 0.2 % Immature Granulocyte # (Auto) 0.02 K/uL Prothrombin Time 11.8 SECONDS Prothromb Time International Ratio 1.1 Activated Partial Thromboplast Time 23.6 SECONDS Partial Thromboplastin Ratio 0.9 Sodium Level 142 mmol/L Potassium Level 4.6 mmol/L Chloride Level 113 mmol/L Carbon Dioxide Level 27 mmol/L Anion Gap 2.0 mmol/L Blood Urea Nitrogen 4 mg/dl Creatinine 0.77 mg/dl Est Creatinine Clear Calc Drug Dose 163.8 ml/min Estimated GFR () 148.2 Estimated GFR (Non- 127.9 BUN/Creatinine Ratio 4.9 Random Glucose 126 mg/dl Calcium Level 7.6 mg/dl Magnesium Level 2.3 mg/dl Total Bilirubin 0.3 mg/dl Direct Bilirubin < 0.1 mg/dl Aspartate Amino Transf (AST/SGOT) 17 U/L Alanine Aminotransferase (ALT/SGPT) 20 U/L Alkaline Phosphatase 41 U/L Total Protein 4.9 gm/dl Albumin 2.2 gm/dl Assessment and Plan Patient is a 21 year old male with iron deficiency anemia and diarrhea secondary to severe disease activity of his ulcerative pancolitis. 1. Continue Solu-Medrol 40 mg IV BID. 2. Okay to discontinue IV fluids from GI standpoint. 3. Diet advanced to lactose free, low residue diet. 4. Will be due for next Remicade infusion at increased dosing on 10/21/16 as just received Remicade on 09/09/16. Patient aware to obtain trough and ab testing prior to that infusion. 5. Patient is not a good candidate for 6 MP therapy as intermediate activity detected on prior TPMT testing which increases risk for toxicity. 6. Prednisone taper starting at 40 mg decreasing by 5 mg weekly until complete. 7. Office follow up within 2 weeks upon discharge. Agree with SYLVIA Chau as above Abd: Soft, NT, ND, +BS Doing much better today Advance diet as tolerated Continue current therapy Will followup in our office within 2 weeks.
[2016-09-30 12:27] VITALS: BP 110/69; PULSE 66; TEMP 37.1; O2SAT 99
[2016-09-30 14:21] VITALS: BP 105/63; PULSE 72; TEMP 36.7; O2SAT 98
[2016-09-30 15:01] VITALS: BP 110/68; PULSE 68; TEMP 36.3; O2SAT 100
--- NOTE | 2016-09-30 17:56 | Family Medicine Progress Note ---
Progress Note Date of Service Sep 30, 2016. Subjective Pt evaluation today including: conversation w/ patient, conversation w/ family , physical exam, chart review, lab review, review of inpatient medication list Pain: None reported by patient PO Intake: Tolerating low res diet PO, will follow Voiding: no voiding problems Pleasant 21 yo male with no complaints today Has been eager to start solid food diet, so far has tolerated ok Reports only minimal blood on tissue on last loose BM Constitutional: + weight loss, + fatigue Abdomen: + GI bleeding All Other Systems: Reviewed and Negative Medications Current Inpatient Medications Medications (Trade) Dose Ordered Sig/Josias Route Start Time Stop Time Status Last Admin Dose Admin Famotidine 20 mg/ Dextrose 102 ml @ 200 mls/hr Q12H IV 09/28/16 16:00 10/28/16 15:59 09/30/16 16:45 200 MLS/HR Methylprednisolone Sodium Succinate 40 mg/Syringe 0.64 ml @ 1.5 mls/min Q12H IV 09/28/16 18:00 10/28/16 17:59 09/30/16 06:04 1.5 MLS/MIN Objective Vital Signs Date Time Temp Pulse Resp B/P (MAP) Pulse Ox O2 Delivery O2 Flow Rate FiO2 09/30/16 16:00 Room Air 09/30/16 15:01 36.3 68 18 110/68 (82) 100 Room Air 09/30/16 14:21 36.7 72 18 105/63 (77) 98 Room Air 09/30/16 12:27 37.1 66 16 110/69 (83) 99 Room Air 09/30/16 12:00 Room Air 09/30/16 08:00 Room Air 09/30/16 08:00 36.6 60 16 100/64 (76) 100 Room Air 09/30/16 04:30 36.6 60 22 97/61 (73) 98 Room Air 09/30/16 00:01 Room Air 09/29/16 23:44 37.0 63 22 93/54 (67) 99 Room Air 09/29/16 20:00 Room Air 09/29/16 19:28 36.3 64 18 103/60 (74) 100 Room Air Physical Exam General Appearance: WD/WN, no apparent distress Eyes: normal inspection, sclerae normal ENT: normal ENT inspection, hearing grossly normal, pharynx normal Neck: supple, no adenopathy, trachea midline Respiratory/Chest: lungs clear, normal breath sounds, no respiratory distress, no accessory muscle use Cardiovascular: regular rate, rhythm, no edema, no murmur Abdomen: normal bowel sounds, non tender, soft Extremities: non-tender, normal inspection, no pedal edema Neurologic/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, no motor/sensory deficits, alert, normal mood/affect, oriented x 3 Skin: no rash, + pallor Laboratory Results 09/30/16 01:59 Red Blood Count 3.57, Mean Corpuscular Volume 83.8, Mean Corpuscular Hemoglobin 25.5, Mean Corpuscular Hemoglobin Concent 30.4, Mean Platelet Volume 10.4, Neutrophils (%) (Auto) 84.4, Lymphocytes (%) (Auto) 10.3, Monocytes (%) (Auto) 5.1, Eosinophils (%) (Auto) 0.0, Basophils (%) (Auto) 0.0, Neutrophils # (Auto) 7.22, Lymphocytes # (Auto) 0.88, Monocytes # (Auto) 0.44, Eosinophils # (Auto) 0.00, Basophils # (Auto) 0.00 09/30/16 08:14 09/30/16 01:59 Test 09/30/16 01:59 White Blood Count 8.56 K/uL (4.8-10.8) Red Blood Count 3.57 M/uL (4.7-6.1) Hemoglobin 9.1 g/dL (14.0-18.0) Hematocrit 29.9 % (42-52) Mean Corpuscular Volume 83.8 fL (80-100) Mean Corpuscular Hemoglobin 25.5 pg (25-34) Mean Corpuscular Hemoglobin Concent 30.4 g/dl (32-36) Platelet Count 380 K/uL (130-400) Mean Platelet Volume 10.4 fL (7.4-10.4) Neutrophils (%) (Auto) 84.4 % Lymphocytes (%) (Auto) 10.3 % Monocytes (%) (Auto) 5.1 % Eosinophils (%) (Auto) 0.0 % Basophils (%) (Auto) 0.0 % Neutrophils # (Auto) 7.22 K/uL (1.4-6.5) Lymphocytes # (Auto) 0.88 K/uL (1.2-3.4) Monocytes # (Auto) 0.44 K/uL (0.11-0.59) Eosinophils # (Auto) 0.00 K/uL (0-0.5) Basophils # (Auto) 0.00 K/uL (0-0.2) RDW Standard Deviation 46.5 fL (36.4-46.3) RDW Coefficient of Variation 15.0 % (11.5-14.5) Immature Granulocyte % (Auto) 0.2 % Immature Granulocyte # (Auto) 0.02 K/uL (0.00-0.02) Prothrombin Time 11.8 SECONDS (9.0-12.0) Prothromb Time International Ratio 1.1 (0.9-1.1) Activated Partial Thromboplast Time 23.6 SECONDS (21.0-31.0) Partial Thromboplastin Ratio 0.9 Anion Gap 2.0 mmol/L (3-11) Est Creatinine Clear Calc Drug Dose 163.8 ml/min Estimated GFR () 148.2 Estimated GFR (Non- 127.9 BUN/Creatinine Ratio 4.9 (10-20) Calcium Level 7.6 mg/dl (8.5-10.1) Magnesium Level 2.3 mg/dl (1.8-2.4) Total Bilirubin 0.3 mg/dl (0.2-1) Direct Bilirubin < 0.1 mg/dl (0-0.2) Aspartate Amino Transf (AST/SGOT) 17 U/L (15-37) Alanine Aminotransferase (ALT/SGPT) 20 U/L (12-78) Alkaline Phosphatase 41 U/L (45-117) Total Protein 4.9 gm/dl (6.4-8.2) Albumin 2.2 gm/dl (3.4-5.0) Assessment and Plan 21 yo male presented with bloody diarrhea and iron deficiency anemia secondary to active disease process of ulcerative colitis Current problems include: Iron deficiency anemia: Received 2 units PRBCs on admission Hb has been tracked q6h for the last 2 days; ok to cut down to daily H&H check Hb holding steady at 10.2 Will need to restart oral iron therapy on discharge Active exacerbation of ulcerative colitis Continue solumedrol 40 mg IV BID Has been tolerating transition of diet from liquids to lactose free low residue as described by GI team well Bloody stool has diminished; last BM only had blood on tissue/none in bowl. Will continue to monitor BMs for blood through the night. Will likely be discharged on steroid taper per GI note: --Prednisone taper starting at 40 mg decreasing by 5 mg weekly until complete Refer to GI team regarding Remicaid therapy--next treatment due end of September. IV fluids DCd CMV and C.diff tests both negative Severe protein caloric malnutrition Albumin level on admission 2.2 Recent unintended weight loss of 20 lb over 3-4 months Recommend Boost supplementation, 1-2 per day I have added B12, Folate, and Vit D levels to Sat AM labs; depending on results, may need to supplement on DC Due for discharge tomorrow, Sat 10/01 Code status: Full Code Dispo: Med/surg VTE: none. Fully mobile. Resident Physician Supervision Note: I was present with PGY1 Dr. Lesia Dennis during the history and exam. I discussed the case with the resident and agree with the findings and plan as documented in the note. Any exceptions or clarifications are listed here: none. Pt feels well. Scant BRBPR. no abd pain. Stool frequency is minimal. VSS gen - NAD; pallor mouth - MMM, no lesions heart - RRR lungs - CTA b/l abd - soft, NT, ND, BS+ ext - no edema A/P: 1. acute blood loss anemia 2nd to active ulcerative colitis s/p 2 units PRBCs this admission with stable h/h since. 2. iron deficiency anemia on supplementation. 3. ulcerative colitis with flare/exacerbation in the setting of chronic remicade use - improved. 4. severe protein calorie malnutrition. cont to monitor H/H Fe supplementation agree with IV steroids; prednisone taper after d/c no evidence of complicating CMV infection or c. diff agree with nutritional labs in am anticipate d/c to home tomorrow d/c IVF Documented By: Danish Pinto MD Resident Tracking Resident Involvement: Resident Care Provided Care Provided: [facility] Medicine
[2016-09-30 23:00] VITALS: BP 109/63; PULSE 68; TEMP 36.6; O2SAT 98
[2016-10-01] MEDS: FAMOTIDINE IV INJ 20 MG in DEXTROSE 5% 100ML 100 ML IV SCH (04:08)
[2016-10-01] MEDS: METHYLPREDNISOLONE IV 40 MG in SYRINGE 0 ML IV SCH (06:01)
[2016-10-01 06:48] LABS: COMPLETE YES; HEMATOCRIT 29.8 % (42-52); IG% 0.2 %; LYMPH % 9.3 %; LYMPH ABS # 0.84 K/uL (1.2-3.4); MEAN CELL VOLUME 85.9 fL (80-100); MEAN CORPUSCULAR HEMOGLOBIN 25.9 pg (25-34); MEAN CORPUSCULAR HGB CONC 30.2 g/dl (32-36); MEAN PLATELET VOLUME 10.7 fL (7.4-10.4); MONO % 8.9 %; NEUT % 81.6 %; PLATELET COUNT 375 K/uL (130-400); RED BLOOD COUNT 3.47 M/uL (4.7-6.1); WHITE BLOOD COUNT 9.03 K/uL (4.8-10.8)
[2016-10-01 07:23] LABS: ALT/SGPT 26 U/L (12-78); BLOOD UREA NITROGEN 8 mg/dl (7-18); BUN/CREATININE RATIO 10.1 (10-20); CARBON DIOXIDE 25 mmol/L (21-32); CHLORIDE 110 mmol/L (98-107); CREATININE 0.75 mg/dl (0.60-1.40); GLUCOSE 94 mg/dl (70-99); MAGNESIUM 2.4 mg/dl (1.8-2.4); POTASSIUM 4.4 mmol/L (3.5-5.1); SODIUM 141 mmol/L (136-145)
[2016-10-01 07:28] LABS: ALKALINE PHOSPHATASE 38 U/L (45-117); AST/SGOT 29 U/L (15-37); FERRITIN 13.7 ng/ml (8.0-388.0)
[2016-10-01 07:29] VITALS: BP 122/85; PULSE 51; TEMP 36.3; O2SAT 100
--- NOTE | 2016-10-01 08:59 | Family Medicine Progress Note ---
Progress Note Date of Service Oct 01, 2016. Subjective Pt evaluation today including: conversation w/ patient, physical exam, chart review, lab review, review of inpatient medication list Pain: Patient reports no pain PO Intake: Tolerating low res diet PO Voiding: no voiding problems Mr. Fitzgerald is a pleasant 21 year old man with no new complaints. He has had one bowel movement this morning, and reports that his stool was semi-solid, and that there was no blood present. He was started on solid food yesterday and is tolerating it well. He denies any abdominal pain or fatigue. He feels well and is hopeful for discharge today. Abdomen: No pain, No nausea, No diarrhea, No constipation, No GI bleeding All Other Systems: Reviewed and Negative Medications Current Inpatient Medications Medications (Trade) Dose Ordered Sig/Josias Route Start Time Stop Time Status Last Admin Dose Admin Famotidine 20 mg/ Dextrose 102 ml @ 200 mls/hr Q12H IV 09/28/16 16:00 10/28/16 15:59 10/01/16 04:08 200 MLS/HR Methylprednisolone Sodium Succinate 40 mg/Syringe 0.64 ml @ 1.5 mls/min Q12H IV 09/28/16 18:00 10/28/16 17:59 10/01/16 06:01 1.5 MLS/MIN Objective Vital Signs Date Time Temp Pulse Resp B/P (MAP) Pulse Ox O2 Delivery O2 Flow Rate FiO2 10/01/16 07:29 36.3 51 18 122/85 (97) 100 10/01/16 02:00 Room Air 09/30/16 23:00 36.6 68 18 109/63 (78) 98 Room Air 09/30/16 16:00 Room Air 09/30/16 15:01 36.3 68 18 110/68 (82) 100 Room Air 09/30/16 14:21 36.7 72 18 105/63 (77) 98 Room Air 09/30/16 12:27 37.1 66 16 110/69 (83) 99 Room Air 09/30/16 12:00 Room Air Physical Exam General Appearance: WD/WN, no apparent distress Eyes: normal inspection, PERRL Neck: supple, no adenopathy Respiratory/Chest: chest non-tender, lungs clear, normal breath sounds, no respiratory distress, no accessory muscle use Cardiovascular: regular rate, rhythm, no edema, no gallop, no JVD, no murmur Abdomen: normal bowel sounds, non tender, soft, no organomegaly, no pulsatile mass Neurologic/Psychiatric: alert, normal mood/affect, oriented x 3 Skin: normal color Laboratory Results Test 09/28/16 15:00 09/28/16 19:30 09/29/16 03:49 09/30/16 01:59 Large Platelets 1+ Polychromasia 1+ Anisocytosis PRESENT Tear Drop Cells OCCASIONAL Iron Level 7 Total Iron Binding Capacity 191 Globulin 2.5 Albumin/Globulin Ratio 0.9 C-Reactive Protein 0.72 Prothrombin Time 11.3 11.8 Prothrombin Time INR 1.1 1.1 PTT 24.6 23.6 Partial Thromboplastin Ratio 0.9 0.9 White Blood Count 8.56 Red Blood Count 3.57 Hemoglobin 9.1 Hematocrit 29.9 Mean Corpuscular Volume 83.8 Mean Corpuscular Hemoglobin 25.5 Mean Corpuscular Hemoglobin Concent 30.4 Platelet Count 380 Mean Platelet Volume 10.4 Neutrophils (%) (Auto) 84.4 Lymphocytes (%) (Auto) 10.3 Monocytes (%) (Auto) 5.1 Eosinophils (%) (Auto) 0.0 Basophils (%) (Auto) 0.0 Neutrophils # (Auto) 7.22 Lymphocytes # (Auto) 0.88 Monocytes # (Auto) 0.44 Eosinophils # (Auto) 0.00 Basophils # (Auto) 0.00 RDW Standard Deviation 46.5 RDW Coefficient of Variation 15.0 Immature Granulocyte % (Auto) 0.2 Immature Granulocyte # (Auto) 0.02 Sodium Level 142 Potassium Level 4.6 Chloride Level 113 Carbon Dioxide Level 27 Anion Gap 2.0 Blood Urea Nitrogen 4 Creatinine 0.77 Est Creatinine Clear Calc Drug Dose 163.8 Estimated GFR () 148.2 Estimated GFR (Non- 127.9 BUN/Creatinine Ratio 4.9 Random Glucose 126 Calcium Level 7.6 Magnesium Level 2.3 Total Bilirubin 0.3 Direct Bilirubin < 0.1 Aspartate Amino Transferase (AST) 17 Alanine Aminotransferase (ALT) 20 Alkaline Phosphatase 41 Total Protein 4.9 Albumin 2.2 Test 09/30/16 08:14 10/01/16 06:01 10/01/16 06:02 Hemoglobin 10.2 9.0 Hematocrit 32.7 29.8 Sodium Level 141 Potassium Level 4.4 Chloride Level 110 Carbon Dioxide Level 25 Anion Gap 6.0 Blood Urea Nitrogen 8 Creatinine 0.75 Est Creatinine Clear Calc Drug Dose 168.2 Estimated GFR () 149.9 Estimated GFR (Non- 129.3 BUN/Creatinine Ratio 10.1 Random Glucose 94 Calcium Level 8.0 Magnesium Level 2.4 Ferritin 13.7 Total Bilirubin 0.2 Direct Bilirubin < 0.1 Aspartate Amino Transferase (AST) 29 Alanine Aminotransferase (ALT) 26 Alkaline Phosphatase 38 Total Protein 5.1 Albumin 2.2 Vitamin B12 Level Pending 25-Hydroxy Vitamin D Total Pending Folate Pending White Blood Count 9.03 Red Blood Count 3.47 Mean Corpuscular Volume 85.9 Mean Corpuscular Hemoglobin 25.9 Mean Corpuscular Hemoglobin Concent 30.2 Platelet Count 375 Mean Platelet Volume 10.7 Neutrophils (%) (Auto) 81.6 Lymphocytes (%) (Auto) 9.3 Monocytes (%) (Auto) 8.9 Eosinophils (%) (Auto) 0.0 Basophils (%) (Auto) 0.0 Neutrophils # (Auto) 7.37 Lymphocytes # (Auto) 0.84 Monocytes # (Auto) 0.80 Eosinophils # (Auto) 0.00 Basophils # (Auto) 0.00 RDW Standard Deviation 48.7 RDW Coefficient of Variation 15.4 Immature Granulocyte % (Auto) 0.2 Immature Granulocyte # (Auto) 0.02 Assessment and Plan Mr. Fitzgerald is a 21 year old male who was admitted 2 days ago from colonoscopy due to an erythematous colon and very pale appearance on a background of ulcerative colitis diagnosed in December 2015. He complained of fatigue, dysnpea on exertion, abdominal pain and rectal bleeding. Acute Exacerbation of Ulcerative Colitis: He is tolerating solid foods well, forming semi-solid stool and his abdominal pain and rectal bleeding have resolved. Can d/c with gastro recommendations to taper prednisone starting at 40mg, and decreasing by 5mg weekly until complete. He should also follow up with gastro in clinic in 2 weeks. His next dose of infliximab is due October 21 and will be at a higher dose than previous. Iron Deficiency Anemia: His hemoglobin today is 9.0, and has remained steady over the past two days. He will need to be discharged on iron supplementation. Severe protein caloric malnutrition: Recommend Boost 1-2 per day Waiting for B12, folate studies to come back to determine if supplementation is needed on d/c. Discharge planning: home Resident Tracking Resident Involvement: Resident Care Provided Care Provided: Adult [facility] Medicine
[2016-10-01] MEDS ORDERED: PRED-301 PO (10:02)
[2016-10-01] MEDS ORDERED: CHOL2000 PO (10:29)
[2016-10-01] MEDS ORDERED: FOLI1TAB7 PO (10:31)
[2016-10-01] MEDS ORDERED: RANI300T2 PO (10:43)
--- NOTE | 2016-10-01 12:22 | Discharge Instructions ---
Discharge Instructions Date of Service Oct 01, 2016. Admission Reason for Admission: GI Bleeding secondary to Ulcerative Colitis Discharge Discharge Diagnosis / Problem: GI bleeding leading to anemia requiring blood transfusion Discharge Goals Goal(s): Improve disease control, Improve nutritional status, Prevent Disease Progression Activity Recommendations Activity Limitations: resume your previous activity Exercise/Sports Limitations: gradually increase as tolerated (over 1-2 weeks) . Instructions / Follow-Up Instructions / Follow-Up You were hospitalized due to an acute flare up of ulcerative colitis, which resulted in iron deficiency anemia, requiring two blood transfusions. Please see the following instructions: 1) Follow-up with gastroenterology clinic in 2 weeks, at which point they will schedule your next infliximab dose (October 21) 2) Before your next infliximab dose, please obtain a trough and antibody level. 3) You have been prescribed prednisone to take once daily, for a period of 8 weeks. You will start at a dose of 40mg per day and taper down 5mg per week until you reach 0. This will take 8 weeks. 4) While you are on prednisone, please take 1 tablet of Zantac daily, in the morning. This is to prevent formation of ulcers in your stomach. 5) To supplement for your vitamin deficiencies, we have prescribed you Vitamin D , 2000 units, to be taken once a day, indefinitely, and folic acid, to be taken once a day for 28 days. 6) Have 1-2 Boost per day to improve your protein levels 7) If at any time, you experience worsening of your diarrhea, blood in your stools, fever, abdominal pain, or feel faint, please return to the hospital. Current Hospital Diet Patient's current hospital diet: Low Fiber Diet, Regular Diet, Low Lactose Diet Discharge Diet Recommended Diet: Low Fiber Diet, Low Lactose Diet Fluid Restriction: None Procedures Procedures Performed: Colonoscopy, Blood transfusion x2 Pending Studies Studies pending at discharge: no Medical Emergencies . Who to Call and When: Medical Emergencies: If at any time you feel your situation is an emergency, please call 911 immediately. . Non-Emergent Contact Non-Emergency issues call your: Tie Worker Call Non-Emergent contact if: you have a fever, temperature is above 100.5, your pain is worsening, your pain is concerning you, you have any medication questions Please call Dr. Klein if bloody diarrhea or abdominal pain return, or if you feel faint, weak or experience shortness of breath with exertion. . . "Provider Documentation" section prepared by Cely Jimenez. Attending Attestation: Pt seen/examined and discharge care plan d/w PGY1 Dr. Cely Jimenez. I agree with her discharge instructions as outlined. Danish Pinto MD . VTE Core Measure Inpt VTE Proph given/why not?: SCD's
[2016-10-01 12:35] VITALS: BP 122/85; PULSE 51; TEMP 36.3; O2SAT 100
--- NOTE | 2016-10-01 16:33 | Discharge Summary ---
Discharge Summary Date of Service Oct 01, 2016. (Cely Jimenez M.D.) Discharge Summary Admission Date: Sep 28, 2016 at 13:39 Discharge Date: Oct 01, 2016 Discharge Disposition: Home Principal Diagnosis: Acute Flare Up of Ulcerative Colitis (Cely Jimenez M.D.) Problems/Secondary Diagnoses: 1. severe protein calorie malnutrition 2. folic acid deficiency 3. iron deficiency anemia 4. acute blood loss anemia 2nd to ulcerative colitis 5. vitamin D deficiency (Danish Pinto MD) Medication Reconciliation New Medications: Cholecalciferol (Vitamin D3) 2,000 Unit Cap 1 CAP PO DAILY for 30 Days, #30 CAP 3 Refills Take 1 tablet per day. Continue indefinitely. Folic Acid (Folvite) 1 Mg Tab 1 TAB PO DAILY for 28 Days, #28 TAB 5 Refills Take 1 tablet daily for 28 days Prednisone (Prednisone) 5 Mg Tab 5 MG PO DAILY for 56 Days, #252 TAB 8 tab/day week 1 7 tab/day week 2 6 tab/day week 3 5 tab/day week 4 4 tab/day week 5 3 tab/day week 6 2 tab/day week 7 1 tab/day week 8 Stop Ranitidine Hcl (Zantac) 300 Mg Tab 1 TAB PO HS for 30 Days, #30 TAB 2 Refills Take 1 tablet every morning. Continued Medications: Ferrous Sulfate (Iron) 325 Mg Tab 325 MG PO TID Infliximab (Remicade) 100 Mg/10 Ml Inj 1 DOSE IV Q8 WEEKS Discharge Exam Mr. Fitzgerald is a pleasant 21 year old man with no new complaints today. He has had one bowel movement this morning, and reports that his stool was semi-solid, and that there was no blood present. He was started on solid food yesterday and is tolerating it well. He denies any abdominal pain or fatigue and overall feels well. Review of Systems: Constitutional: No fever, No chills, No sweats, No weakness, No fatigue Respiratory: No cough, No wheezing, No shortness of breath, No dyspnea on exertion Abdomen: No pain, No nausea, No vomiting, No diarrhea, No constipation, No GI bleeding Physical Exam: General Appearance: WD/WN, no apparent distress ENT: normal ENT inspection, pharynx normal Neck: supple, no adenopathy Respiratory/Chest: chest non-tender, lungs clear, normal breath sounds, no respiratory distress, no accessory muscle use Cardiovascular: regular rate, rhythm, no edema, no gallop, no JVD, no murmur , normal peripheral pulses Abdomen / GI: normal bowel sounds, non tender, soft, no organomegaly, no pulsatile mass Skin: normal color (Cely Jimenez M.D.) Hospital Course Mr. Fitzgerald was admitted on September 29, 2016 from colonoscopy due to an erythematous colon and very pale appearance on a background of ulcerative colitis diagnosed in December 2015. He complained of fatigue, dyspnea on exertion , abdominal pain and rectal bleeding. His hemoglobin at this time was found to be 7.2. He was transfused with 2 units of blood, and started on IV methylprednisolone. Over the next two days, his abdominal pain and fatigue improved. He had less bowel movements per day, and no rectal bleeding. He is being discharged on a tapering regimen of prednisone, starting at 40mg OD per week, and decreasing by 5mg per week for 8 weeks. He was also given a prescription for Zantac as a protective agent whilst on steroids. His folate and Vitamin D levels were also found to be low and he was prescribed tablets to supplement these. He was told to continue taking his iron tablets thrice daily, and to drink 1-2 Boosts per day due to his protein caloric malnutrition. He was advised to follow up with Dr. Klein in 2 weeks, and will be receiving his next dose of infliximab on October 21. Total Time Spent: Less than 30 minutes This includes examination of the patient, discharge planning, medication reconciliation, and communication with other providers. (Cely Jimenez M.D.) Resident Physician Supervision Note: I was present with PGY1 Dr. Cely Jimenez during the discharge history and exam. I discussed the case with the resident and agree with the findings and plan as documented in the discharge summary. Any exceptions or clarifications are listed here: none. 21yo male with known ulcerative colitis (UC) who was admitted directly from the endoscopy suite after colonoscopy revealed pancolitis and overt GI bleeding from his UC. He was found to be severely anemic with Hb of 7.3; he received 2 units of PRBCs for such. He was also started on IV steroids for his ulcerative colitis exacerbation. He improved clinically with the steroids and lower GI bleeding resolved. He overall felt better. C. diff toxin was negative and CMV from the colonic biopsy was negative. In addition to low iron he was found to be deficient in vitamin D as well as folic acid. He will d/c home on a long steroid taper and have close GI follow-up with Dr. Pete Klein. Discharge exam - gen - NAD skin - pallor heart - RRR lungs - CTA b/l abd - soft, NT ext - no edema Documented By: Danish Pinto MD (Danish Pinto MD) Discharge Instructions Please refer to the electronic Patient Visit Report (Discharge Instructions) for additional information. (Cely Jimenez M.D.) Additional Copies To Pete Klein D.O. Resident Tracking Resident Involvement: Resident Care Provided Care Provided: Adult [facility] (Cely Jimenez M.D.)
== END 2016-10-01 12:51 | disposition home or self-care (01) | DRG 385 ==
LOC: C.GI 09:48 → CANRESERV 12:43 → ENRESERV 12:43 → EDBEDREQSVC 13:38 → EDBEDREQTM 13:38 → C.2T 13:39 → ENRESERV 13:40 → C.MS2W 09-30 13:25
PROVIDERS: ADMIT Hospitalist; ATTEND Internal Medicine
PROC: 0DBE8ZX Excision of Large Intestine, Via Natural or Artificial Opening Endoscopic, Diagnostic (ICD-10-PCS; principal; 2016-09-28 10:35)
DX: K51.011 Ulcerative (chronic) pancolitis with rectal bleeding (principal); E43 Unspecified severe protein-calorie malnutrition; D62 Acute posthemorrhagic anemia; D50.0 Iron deficiency anemia secondary to blood loss (chronic); E55.9 Vitamin D deficiency, unspecified; E53.8 Deficiency of other specified B group vitamins; K64.8 Other hemorrhoids; Z79.899 Other long term (current) drug therapy

== ENCOUNTER → 2016-10-21 | Outpatient (CLI) | payer BC, OTHER ==
[~2016-10-21] MED LIST changes: +CHOL2000 PO; +FOLI1TAB7 PO; +PRED-301 PO; +RANI300T2 PO; -SODIUM CHLORIDE 0.9% 500ML 500 ML IV ONE
[2016-10-21 13:38] LABS: BASO % 0.2 %; BASO ABS # 0.01 K/uL (0-0.2); COMPLETE YES; EOS % 0.5 %; HEMATOCRIT 32.4 % (42-52); IG% 0.3 %; LYMPH % 8.2 %; LYMPH ABS # 0.47 K/uL (1.2-3.4); MEAN CELL VOLUME 86.6 fL (80-100); MEAN CORPUSCULAR HEMOGLOBIN 26.5 pg (25-34); MEAN CORPUSCULAR HGB CONC 30.6 g/dl (32-36); MEAN PLATELET VOLUME 11.7 fL (7.4-10.4); MONO % 4.9 %; NEUT % 85.9 %; PLATELET COUNT 276 K/uL (130-400); RED BLOOD COUNT 3.74 M/uL (4.7-6.1); WHITE BLOOD COUNT 5.75 K/uL (4.8-10.8)
[2016-10-21 14:16] LABS: ALT/SGPT 62 U/L (12-78); BLOOD UREA NITROGEN 14 mg/dl (7-18); BUN/CREATININE RATIO 13.6 (10-20); C-REACTIVE PROTEIN 1.38 mg/dl (0-0.29); CALCIUM 8.5 mg/dl (8.5-10.1); CARBON DIOXIDE 27 mmol/L (21-32); CHLORIDE 105 mmol/L (98-107); CREATININE 0.99 mg/dl (0.60-1.40); GLUCOSE 99 mg/dl (70-99); SODIUM 139 mmol/L (136-145)
[2016-10-21 14:19] LABS: ALKALINE PHOSPHATASE 54 U/L (45-117); AST/SGOT 22 U/L (15-37)
== END | disposition home or self-care (01) ==
LOC: C.LAB1850 12:42
PROVIDERS: ATTEND Registered Nurse
DX: K51.00 Ulcerative (chronic) pancolitis without complications (principal)